=== PATIENT | male | born 1970 | race Caucasian/White ===

== ENCOUNTER 2016-06-09 16:03 | Inpatient (IN) | payer OTHER ==
--- NOTE | 2016-06-09 16:20 | ER Document Report ---
ED Medical Screen (RME) - General Stated Complaint: CALF PAIN Time seen by provider: 16:20 Mode of Arrival: Ambulatory Information source: Patient Notes: 45 yo male with hx right leg dvt post surgery 1, developed right calf pain on friday. No injury. Took xarelto until August 2015l TRAVEL OUTSIDE OF THE [place] IN LAST 30 DAYS: No - Related Data Allergies/Adverse Reactions: No Known Allergies Allergy (Verified 06/09/16 16:21) Past Medical History - Past Medical History Cardiac Medical History: Denies: Hx Coronary Artery Disease, Hx Heart Attack, Hx Hypertension Pulmonary Medical History: Reports: Hx Bronchitis - hx of, Hx Pneumonia - 2013 Denies: Hx Asthma, Hx COPD Neurological Medical History: Denies: Hx Seizures GI Medical History: Reports: Hx Gastroesophageal Reflux Disease, Hx Hiatal Hernia Musculoskeltal Medical History: Denies Hx Arthritis Past Surgical History: Reports: Hx Orthopedic Surgery - left shoulder rotator cuff, right elbow bone spur, bilateral knee scopes - Immunizations Hx Diphtheria, Pertussis, Tetanus Vaccination: Yes Physical Exam - Vital signs Vitals: Temp Pulse Resp BP Pulse Ox 97.6 F 76 22 H 136/75 H 99 06/09/16 16:22 06/09/16 16:22 06/09/16 16:22 06/09/16 16:22 06/09/16 16:22 Course - Vital Signs Vital signs: Temp Pulse Resp BP Pulse Ox 97.6 F 76 22 H 136/75 H 99 06/09/16 16:22 06/09/16 16:22 06/09/16 16:22 06/09/16 16:22 06/09/16 16:22
[2016-06-09 16:55] LABS: ABSOLUTE BASOPHILS # (AUTO) 0.1 10^3/uL (0.0-0.2); ABSOLUTE EOSINOPHILS # (AUTO) 0.1 10^3/uL (0.0-0.6); ABSOLUTE LYMPHOCYTES (AUTO) 1.8 10^3/uL (0.5-4.7); ABSOLUTE MONOCYTES (AUTO) 0.7 10^3/uL (0.1-1.4); ABSOLUTE NEUT (AUTO) 9.7 10^3/uL (1.7-8.2); BASOPHILS % (AUTO) 0.5 % (0-2); EOSINOPHILS % (AUTO) 0.8 % (0-6); HEMATOCRIT 44.7 % (37.9-51.0); HEMOGLOBIN 15.3 g/dL (13.5-17.0); HGB HCT DIFFERENCE 1.2; LYMPHOCYTES % (AUTO) 14.7 % (13-45); MEAN CORPUSCULAR HEMOGLOBIN 28.5 pg (27.0-33.4); MEAN CORPUSCULAR HGB CONC 34.2 g/dL (32.0-36.0); MEAN CORPUSCULAR VOLUME 83 fl (80-97); MONOCYTES % (AUTO) 5.9 % (3-13); RED BLOOD COUNT 5.38 10^6/uL (4.35-5.55); SEGMENTED NEUTROPHILS % (AUTO) 78.1 % (42-78); WHITE BLOOD COUNT 12.4 10^3/uL (4.0-10.5)
[2016-06-09 16:56] LABS: PROTHROMBIN TIME 13.2 SEC (11.4-15.4)
[2016-06-09 16:57] LABS: PARTIAL THROMBOPLASTIN TIME 26.4 SEC (23.5-35.8)
[2016-06-09 17:07] LABS: ALANINE AMINOTRANSFERASE 54 U/L (21-72); ALBUMIN 3.9 g/dL (3.5-5.0); ALKALINE PHOSPHATASE 75 U/L (38-126); ANION GAP 14 (5-19); ASPARTATE AMINO TRANSFERASE 29 U/L (17-59); BILIRUBIN,TOTAL 0.5 mg/dL (0.2-1.3); BLOOD UREA NITROGEN 10 mg/dL (7-20); CALCIUM 9.1 mg/dL (8.4-10.2); CARBON DIOXIDE 25 mmol/L (22-30); CHLORIDE 103 mmol/L (98-107); CREATININE RESULT 1.13 mg/dL (0.52-1.25); GLUCOSE 114 mg/dL (75-110); POTASSIUM 4.1 mmol/L (3.6-5.0); SODIUM 142.4 mmol/L (137-145)
[2016-06-09] MEDS ORDERED: RIVAROXABAN 15 MG TABLET PO ONE (18:38)
--- NOTE | 2016-06-09 18:41 | ER Document Report ---
ED Extremity Problem, Lower - General Chief Complaint: Leg Pain Stated Complaint: CALF PAIN Mode of Arrival: Ambulatory Information source: Patient Notes: 45-year-old male presents to the emergency department complaining of pain to his right lower leg. Patient reports progressive sharp pain to lateral aspect of right lower leg at calf area. Reports associated mild localized swelling. Patient states was diagnosed with DVT to same extremity approximately 12 months ago and treated for 90 days with course of Xarelto. Reports symptoms had resolved until recent episode. Pt also states is currently being treated for bronchitis per pcp with course of Prednisone, Albuterol INH, and Levaquin. Denies fever, chest pain, sob, hemoptysis, n/v, extremity weakness, numbness, tingling, or color changes. TRAVEL OUTSIDE OF THE [place] IN LAST 30 DAYS: No - HPI Patient complains to provider of: Pain, Swelling Location: Leg Occurred: Last week Onset/Duration: Gradual, Persistent Quality of pain: Achy, Sharp Severity: Moderate Pain Level: 2 Recent injury: No Exacerbated by: Movement, Walking - Related Data Allergies/Adverse Reactions: No Known Allergies Allergy (Verified 06/09/16 16:21) Past Medical History - General Information source: Patient - Social History Smoking Status: Never Smoker Chew tobacco use (# tins/day): No Frequency of alcohol use: None Drug Abuse: None Lives with: Family Family History: Reviewed & Not Pertinent, Other - mother had dvt Patient has suicidal ideation: No Patient has homicidal ideation: No - Past Medical History Cardiac Medical History: Denies: Hx Coronary Artery Disease, Hx Heart Attack, Hx Hypertension Pulmonary Medical History: Reports: Hx Bronchitis - hx of, Hx Pneumonia - 2013 Denies: Hx Asthma, Hx COPD Neurological Medical History: Denies: Hx Seizures GI Medical History: Reports: Hx Gastroesophageal Reflux Disease, Hx Hiatal Hernia Musculoskeltal Medical History: Denies Hx Arthritis Past Surgical History: Reports: Hx Orthopedic Surgery - left shoulder rotator cuff, right elbow bone spur, bilateral knee scopes - Immunizations Hx Diphtheria, Pertussis, Tetanus Vaccination: Yes Review of Systems - Review of Systems Constitutional: No symptoms reported EENT: No symptoms reported Cardiovascular: See HPI Respiratory: No symptoms reported Gastrointestinal: No symptoms reported Genitourinary: No symptoms reported Male Genitourinary: No symptoms reported Musculoskeletal: See HPI Skin: No symptoms reported Hematologic/Lymphatic: No symptoms reported Neurological/Psychological: No symptoms reported -: Yes All other systems reviewed and negative Physical Exam - Vital signs Vitals: Temp Pulse Resp BP Pulse Ox 97.6 F 76 22 H 136/75 H 99 06/09/16 16:22 06/09/16 16:22 06/09/16 16:22 06/09/16 16:22 06/09/16 16:22 Interpretation: Normal - General General appearance: Appears well, Alert In distress: None - HEENT Head: Normocephalic, Atraumatic Eyes: Normal Pupils: PERRL - Respiratory Respiratory status: No respiratory distress Chest status: Nontender Breath sounds: Normal Chest palpation: Normal - Cardiovascular Rhythm: Regular Heart sounds: Normal auscultation Murmur: No Pulses: Normal: Radial, Posterior tibial, Dorsalis pedis Normal capillary refill: Yes - Abdominal Inspection: Normal Distension: No distension Bowel sounds: Normal Tenderness: Nontender Organomegaly: No organomegaly - Back Back: Normal, Nontender - Extremities General upper extremity: Normal inspection, Nontender, Normal color, Normal ROM , Normal strength, Normal temperature. No: Tender, Edema General lower extremity: Normal inspection, Nontender, Normal color, Normal ROM , Normal strength, Normal temperature, Normal weight bearing. No: Tender, Edema Calf: Tender - Tenderness with palpation to posterior and lateral aspect of right lower leg at mid calf level. Mild localized swelling and slight warmth. No erythema or bruising. Distal neurovascular function intact. - Neurological Neuro grossly intact: Yes Cognition: Normal Orientation: AAOx4 [place] Coma Scale Eye Opening: Spontaneous [place] Coma Scale Verbal: Oriented [place] Coma Scale Motor: Obeys Commands [place] Coma Scale Total: 15 Speech: Normal Motor strength normal: LUE, RUE, LLE, RLE Sensory: Normal - Psychological Associated symptoms: Normal affect, Normal mood - Skin Skin Temperature: Warm Skin Moisture: Dry Skin Color: Normal Course - Re-evaluation Re-evalutation: 06/09/16 18:40 Patient hemodynamically stable, in no distress, afebrile. Venous ultrasound positive for femoral and popliteal DVT per Dr. Ronna Berg. Some presentation and findings discussed with Dr. Nguyễn who is on-call for patient's primary care provider Dr. Mcintosh and agrees to assume care and admit to telemetry unit. Recommends initiation of Xarelto 15 mg PO BID, first dose in the ED. Findings and plan discussed with patient who verbalized understanding and agrees with plan. - Vital Signs Vital signs: Temp Pulse Resp BP Pulse Ox 97.6 F 76 22 H 136/75 H 99 06/09/16 16:22 06/09/16 16:22 06/09/16 16:22 06/09/16 16:22 06/09/16 16:22 - Laboratory Result Diagrams: 06/09/16 16:35 06/09/16 16:35 Laboratory results interpreted by me: 06/09/16 06/09/16 16:35 16:35 WBC 12.4 H Seg Neutrophils % 78.1 H Absolute Neutrophils 9.7 H Glucose 114 H Discharge - Discharge Clinical Impression: DVT (deep venous thrombosis) Qualifiers: DVT location: lower extremity Affected thrombotic vein of extremity: femoral Laterality: right Chronicity: acute Qualified Code(s): I82.411 - Acute embolism and thrombosis of right femoral vein Condition: Stable Disposition: ADMITTED INPATIENT Admitting Provider: Javierist Kindrama Unit Admitted: Telemetry
--- NOTE | 2016-06-09 18:44 | VASCULAR PRELIM REPORT ---
Provider Note Provider Note: Positive for DVT in the right Femoral and Popliteal veins. Acute. Discussed with in the ER at 1840.
[2016-06-09] MEDS ORDERED: RIVAROXABAN 15 MG TABLET ONE (19:23)
[2016-06-09] MEDS ORDERED: METHYLPREDNISOLONE 4 MG TABLET PO PRN (22:56)
[2016-06-09] MEDS ORDERED: ACETAMINOPHEN 325 MG TABLET PO PRN (22:59)
[2016-06-10] MEDS ORDERED: BENZONATATE 100 MG CAPSULE PO ONE (02:15)
[2016-06-10 07:08] LABS: HEMATOCRIT 40.8 % (37.9-51.0); HGB HCT DIFFERENCE 1.2; MEAN CORPUSCULAR HEMOGLOBIN 28.6 pg (27.0-33.4); MEAN CORPUSCULAR HGB CONC 34.3 g/dL (32.0-36.0); MEAN CORPUSCULAR VOLUME 83 fl (80-97); RED CELL DISTRIBUTION WIDTH 13.2 % (11.5-14.0); WHITE BLOOD COUNT 11.4 10^3/uL (4.0-10.5)
[2016-06-10 07:28] LABS: ANION GAP 8 (5-19); BLOOD UREA NITROGEN 15 mg/dL (7-20); CALCIUM 8.6 mg/dL (8.4-10.2); CARBON DIOXIDE 30 mmol/L (22-30); CHLORIDE 103 mmol/L (98-107); CREATININE RESULT 1.33 mg/dL (0.52-1.25); GLUCOSE 91 mg/dL (75-110); SODIUM 141.1 mmol/L (137-145)
[2016-06-10 07:53] LABS: ANISOCYTOSIS SLIGHT; BASOPHILS % (MANUAL) 0 % (0-2); EOSINOPHILS % (MANUAL) 1 % (0-6); LYMPHOCYTES % (MANUAL) 34 % (13-45); TOTAL CELLS COUNTED 100
[2016-06-10 07:54] LABS: OVALOCYTES 1+; PLATELET CLUMPS PRESENT; POIKILOCYTOSIS 1+; POLYCHROMASIA SLIGHT; TOXIC GRANULATION SLIGHT
--- NOTE | 2016-06-10 08:18 | PDOC CONSULTATION ---
Consultation Consult Date: 06/10/16 Attending physician:: MELANIE MATTHEW Consult reason:: RLE DVT, pain, swelling History of Present Illness Admission Date/PCP: 06/09/16 23:09 MELANIE MATTHEW MD Patient complains of: RLE swelling and pain History of Present Illness: LILLIANA MURPHY is a 45 year old male with known history of right lower extremity DVT. He was originally diagnosed with this almost exactly one year ago. I saw him at that time, we placed him on a oral course of Xarelto. He was on that for 3 months. We then repeated a d-dimer as well as a ultrasound of the lower extremity, both were negative so we decided on removing anticoagulation. Recently, he experienced again right lower extremity swelling and pain. Ultrasound this time indicated DVT. He is currently having pain right now. He has had Tylenol but that's not really controlling the pain well. 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, Completed TB medication, 1991 Denies: Asthma Neurological Medical History: Denies: Seizures Renal/ Medical History: Denies: End Stage Renal Disease GI Medical History: Reports: Gastroesophageal Reflux Disease, Hiatal Hernia Denies: Cirrhosis Musculoskeltal Medical History: Denies: Arthritis Psychiatric Medical History: Denies: Bipolar Disorder, Depression Hematology: Denies: Anemia, Bleeding Tendencies Past Surgical History Past Surgical History: Reports: Orthopedic Surgery - left shoulder rotator cuff , right elbow bone spur, bilateral knee scopes Social History Lives with: Family Smoking Status: Never Smoker Drugs: None Family History Family History: Reviewed & Not Pertinent, Other - mother had dvt Parental Family History Reviewed: Yes Children Family History Reviewed: Yes Sibling(s) Family History Reviewed.: Yes Medication/Allergy Home Medications: Esomeprazole Magnesium [Nexium] 40 mg PO DAILY 05/12/15 Albuterol Sulfate [Proair HFA] 1 inh IH QID 06/09/16 Benzonatate [Benzonatate] 100 mg PO TID 06/09/16 Levofloxacin [Levofloxacin] 500 mg PO DAILY 06/09/16 Methylprednisolone [Medrol] 4 mg PO ASDIR PRN 06/09/16 Allergies/Adverse Reactions: No Known Allergies Allergy (Verified 06/09/16 16:21) Review of Systems Constitutional: ABSENT: chills, fever(s), headache(s), weight gain, weight loss Eyes: ABSENT: visual disturbances Ears: ABSENT: hearing changes Cardiovascular: ABSENT: chest pain, dyspnea on exertion, edema, orthropnea, palpitations Respiratory: PRESENT: cough, sputum. ABSENT: hemoptysis Gastrointestinal: ABSENT: abdominal pain, constipation, diarrhea, hematemesis, hematochezia, nausea, vomiting Genitourinary: ABSENT: dysuria, hematuria Musculoskeletal: PRESENT: other - Right lower extremity swelling Integumentary: ABSENT: rash, wounds Neurological: ABSENT: abnormal gait, abnormal speech, confusion, dizziness, focal weakness, syncope Psychiatric: ABSENT: anxiety, depression, homidical ideation, suicidal ideation Endocrine: ABSENT: cold intolerance, heat intolerance, polydipsia, polyuria Hematologic/Lymphatic: ABSENT: easy bleeding, easy bruising Physical Exam Vital Signs: Temp Pulse Resp BP Pulse Ox 98.1 F 64 18 120/54 L 98 06/10/16 00:00 06/10/16 00:00 06/10/16 00:00 06/10/16 00:00 06/10/16 00:00 Intake & Output 06/09/16 06/10/16 06/11/16 06:59 06:59 06:59 Intake Total 300 Balance 300 Weight 131 kg General appearance: PRESENT: no acute distress, well-developed, well-nourished Head exam: PRESENT: atraumatic, normocephalic Eye exam: PRESENT: conjunctiva pink, EOMI, PERRLA. ABSENT: scleral icterus Ear exam: PRESENT: normal external ear exam Mouth exam: PRESENT: moist, tongue midline Neck exam: ABSENT: carotid bruit, JVD, lymphadenopathy, thyromegaly Respiratory exam: PRESENT: clear to auscultation dee. ABSENT: rales, rhonchi, wheezes Cardiovascular exam: PRESENT: RRR. ABSENT: diastolic murmur, rubs, systolic murmur Pulses: PRESENT: normal dorsalis pedis pul Vascular exam: PRESENT: normal capillary refill GI/Abdominal exam: PRESENT: normal bowel sounds, soft. ABSENT: distended, guarding, mass, organolmegaly, rebound, tenderness Rectal exam: PRESENT: deferred Extremities exam: PRESENT: calf tenderness, pedal edema, other - Right lower extremity swelling Neurological exam: PRESENT: alert, awake, oriented to person, oriented to place , oriented to time, oriented to situation, CN II-XII grossly intact. ABSENT: motor sensory deficit Psychiatric exam: PRESENT: appropriate affect, normal mood. ABSENT: homicidal ideation, suicidal ideation Skin exam: PRESENT: dry, intact, warm. ABSENT: cyanosis, rash Results Laboratory Results: 06/10/16 06:50 06/10/16 06:50 06/10/16 06/10/16 06:50 06:50 WBC 11.4 H RBC 4.90 Hgb 14.0 Hct 40.8 MCV 83 MCH 28.6 MCHC 34.3 RDW 13.2 Plt Count 158 Seg Neutrophils % Not Reportable Lymphocytes % Not Reportable Monocytes % Not Reportable Eosinophils % Not Reportable Basophils % Not Reportable Absolute Neutrophils Not Reportable Absolute Lymphocytes Not Reportable Absolute Monocytes Not Reportable Absolute Eosinophils Not Reportable Absolute Basophils Not Reportable Sodium 141.1 Potassium 4.0 Chloride 103 Carbon Dioxide 30 Anion Gap 8 BUN 15 Creatinine 1.33 H Est GFR ( Amer) > 60 Est GFR (Non-Af Amer) 58 L Glucose 91 Calcium 8.6 Assessment & Plan - Diagnosis (1) Acute deep vein thrombosis (DVT) of right popliteal vein Is this a current diagnosis for this admission?: YesPlan: Right lower extremity DVT, this would be DVT #2, he will need to be now on lifelong anticoagulation with Xarelto, he will initially be on 15 mg twice a day for 21 days then transitioned to 20 mg daily. No further lab work needed. For his pain I will give him [place] while inpatient and I've given him a prescription for [place] as an outpatient. He will have follow-up in our office in 3 weeks. - Time Time Spent: 50 to 70 Minutes Critical Time spent with patient: 25-34 minutes Anticipated discharge: Home Within: within 24 hours - Inpatient Certification Based on my medical assessment, after consideration of the patient's comorbidities, presenting symptoms, or acuity I expect that the services needed warrant INPATIENT care.: Yes I certify that my determination is in accordance with my understanding of Medicare's requirements for reasonable and necessary INPATIENT services [42 CFR 412.3e].: Yes Medical Necessity: Failure to Improve With Outpatient Therapy, Risk of Complication if Not Cared For in Hospital
[2016-06-10] MEDS ORDERED: HYDROCODONE/ACETAMINOPHEN 5-325 MG TABLET PO PRN (08:34)
[2016-06-10] MEDS ORDERED: ALBUTEROL SULFATE HFA (90 MCG/PUFF) 200 PUFF/8.5 GM MDI IH SCH (10:00)
[2016-06-10] MEDS ORDERED: ALBUTEROL SULFATE HFA (90 MCG/PUFF) 8 GM MDI (1 MDI/ER DISP) IH SCH (10:00)
[2016-06-10] MEDS ORDERED: BENZONATATE 100 MG CAPSULE PO SCH (10:00)
[2016-06-10] MEDS: LANSOPRAZOLE 30 MG TAB.RAP.DR PO SCH (10:17)
[2016-06-10] MEDS: RIVAROXABAN 15 MG TABLET PO SCH ×2 (10:17→17:40)
[2016-06-10] MEDS: LEVOFLOXACIN 500 MG TABLET PO SCH (10:17)
[2016-06-10] MEDS: METHYLPREDNISOLONE INJ 40 MG/1 ML SDV IV SCH ×2 (10:18→21:22)
[2016-06-10] MEDS: BENZONATATE 100 MG CAPSULE PO SCH ×3 (10:18→17:40)
--- NOTE | 2016-06-10 10:59 | XCELERA REPORT ---
[address] [address] Lower Extremity Venous Evaluation Name: LILLIANA MURPHY Age: 45 yrs Gender: Male : 1970 Patient Status: Preadmit Patient Location: ER Study Date: 06/09/2016 05:51 PM Procedure: Color flow and duplex imaging of the veins of the right lower extremity as well as the left Common Femoral vein. Reason For Study: rt calf, hx dvt right leg Ordering Physician: JERAD HORN Performed By: Bella Thayer Right Sided Venous Evaluation Abnormal vessel filling , echogenic content, no compression or Colour flow in the distal Femora to Popliteal vein. Left Sided Venous Evaluation The left common femoral vein is fully compressible. Spontaneous and phasic flow is present in the left common femoral vein. Critical Findings Per Preliminary report. Interpretation Summary Acute DVT in the right Femoral and Popliteal veins. : JERAD HORN > Shaq Berg
[2016-06-10] MEDS: IPRATROPIUM/ALBUTEROL 0.5-2.5 MG/3 ML AMPUL NEB SCH ×2 (13:41→19:44)
[2016-06-10] MEDS ORDERED: HYDROCODONE BIT/HOMATROPINE SYRUP 5 ML UDCUP PO PRN (13:46)
--- NOTE | 2016-06-10 13:53 | PDOC H&P ---
History of Present Illness Admission Date/PCP: 06/09/16 23:09 MELANIE MATTHEW MD Patient complains of: rt leg pain History of Present Illness: LILLIANA MURPHY is a 45 year old male with known history of right lower extremity DVT. He was originally diagnosed with this almost exactly one year ago. I saw him at that time, we placed him on a oral course of Xarelto. He was on that for 3 months. We then repeated a d-dimer as well as a ultrasound of the lower extremity, both were negative so we decided on removing anticoagulation. Recently, he experienced again right lower extremity swelling and pain. Ultrasound this time indicated DVT. He is currently having pain right now. He has had Tylenol but that's not really controlling the pain well.pt is also c/o cough and rx out pt levaquin and medrol dose pack and still not improving 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, Completed TB medication, 1991 Denies: Asthma Neurological Medical History: Denies: Seizures Renal/ Medical History: Denies: End Stage Renal Disease GI Medical History: Reports: Gastroesophageal Reflux Disease, Hiatal Hernia Denies: Cirrhosis Musculoskeltal Medical History: Denies: Arthritis Psychiatric Medical History: Denies: Bipolar Disorder, Depression Hematology: Denies: Anemia, Bleeding Tendencies Past Surgical History Past Surgical History: Reports: Orthopedic Surgery - left shoulder rotator cuff , right elbow bone spur, bilateral knee scopes Social History Lives with: Family Smoking Status: Never Smoker Drugs: None Family History Family History: Reviewed & Not Pertinent, Other - mother had dvt Parental Family History Reviewed: Yes Children Family History Reviewed: Yes Sibling(s) Family History Reviewed.: Yes Medication/Allergy Home Medications: Esomeprazole Magnesium [Nexium] 40 mg PO DAILY 05/12/15 Benzonatate [Benzonatate] 100 mg PO TID PRN 06/09/16 Albuterol Sulfate [Proair HFA] 2 puff IH Q4 06/10/16 Allergies/Adverse Reactions: No Known Allergies Allergy (Verified 06/09/16 16:21) Review of Systems Constitutional: PRESENT: fatigue Eyes: ABSENT: as per HPI, visual disturbances, other Ears: ABSENT: as per HPI, hearing changes, other Nose, Mouth, and Throat: ABSENT: as per HPI, headache(s), mouth pain, sore throat, vertigo, other Cardiovascular: ABSENT: as per HPI, chest pain, dyspnea on exertion, edema, orthropnea, palpitations, other Respiratory: PRESENT: cough, sputum Gastrointestinal: ABSENT: as per HPI, abdominal pain, bloating, coffee ground emesis, constipation, diarrhea, dysphagia, heartburn, hematemesis, hematochezia , melena, nausea, vomiting, other Genitourinary: ABSENT: as per HPI, difficulty urinating, dysuria, hematuria, nocturia, other Musculoskeletal: ABSENT: as per HPI, back pain, deformity, joint swelling, muscle weakness, other Integumentary: ABSENT: as per HPI, diaphoresis, erythema, lesions, pruritus, rash, wounds, other Neurological: ABSENT: as per HPI, abnormal gait, abnormal movements, abnormal speech, confusion, convulsions, dizziness, focal weakness, frequent falls, lack of coordination, memory loss, numbness, paresthesias, restless legs, syncope, tingling, tremor(s), vertigo, weakness, other Psychiatric: ABSENT: as per HPI, anxiety, depression, hallucinations, homidical ideation, suicidal ideation, other Endocrine: ABSENT: as per HPI, cold intolerance, flushing, heat intolerance, menstrual abnormalities, polydipsia, polyphagia, polyuria, other Hematologic/Lymphatic: ABSENT: as per HPI, easy bleeding, easy bruising, lymphadenopathy, other Physical Exam Vital Signs: Temp Pulse Resp BP Pulse Ox 98.6 F 72 20 133/66 H 97 06/10/16 12:06 06/10/16 12:06 06/10/16 12:06 06/10/16 12:06 06/10/16 12:06 Intake & Output 06/09/16 06/10/16 06/11/16 06:59 06:59 06:59 Intake Total 300 Balance 300 Weight 131 kg General appearance: PRESENT: no acute distress Head exam: PRESENT: normocephalic Eye exam: PRESENT: PERRLA Mouth exam: PRESENT: neck supple Respiratory exam: PRESENT: clear to auscultation dee Cardiovascular exam: PRESENT: +S1, +S2 GI/Abdominal exam: PRESENT: normal bowel sounds, soft. ABSENT: tenderness Extremities exam: PRESENT: calf tenderness. ABSENT: pedal edema Additional comments: rt leg Musculoskeletal exam: PRESENT: ambulatory Neurological exam: PRESENT: alert, awake, oriented to person, oriented to place , oriented to time, oriented to situation Psychiatric exam: PRESENT: normal mood Skin exam: PRESENT: normal color Results Laboratory Results: 06/10/16 06:50 06/10/16 06:50 06/10/16 06/10/16 06:50 06:50 WBC 11.4 H RBC 4.90 Hgb 14.0 Hct 40.8 MCV 83 MCH 28.6 MCHC 34.3 RDW 13.2 Plt Count 158 Seg Neutrophils % Not Reportable Lymphocytes % Not Reportable Monocytes % Not Reportable Eosinophils % Not Reportable Basophils % Not Reportable Absolute Neutrophils Not Reportable Absolute Lymphocytes Not Reportable Absolute Monocytes Not Reportable Absolute Eosinophils Not Reportable Absolute Basophils Not Reportable Sodium 141.1 Potassium 4.0 Chloride 103 Carbon Dioxide 30 Anion Gap 8 BUN 15 Creatinine 1.33 H Est GFR ( Amer) > 60 Est GFR (Non-Af Amer) 58 L Glucose 91 Calcium 8.6 Impressions: Chest X-Ray 06/10/16 00:00 IMPRESSION: NO SIGNIFICANT RADIOGRAPHIC FINDING IN THE CHEST. Assessment & Plan - Diagnosis (1) Acute deep vein thrombosis (DVT) of right popliteal vein Is this a current diagnosis for this admission?: YesPlan: start xeralto consult dr coats for recuurent episode (2) Cough Is this a current diagnosis for this admission?: YesPlan: start cough med (3) Bronchitis Is this a current diagnosis for this admission?: YesPlan: order ct chest start iv med duoneb rx - Time Time Spent: 30 to 50 Minutes Medications reviewed and adjusted accordingly: Yes Anticipated discharge: Home - Inpatient Certification Medical Necessity: Failure to Improve With Outpatient Therapy, Need Close Monitoring Due to Risk of Patient Decompensation - Plan Summary Plan Summary: start xerlato/start levaquin start duoneb ct chest
[2016-06-10] MEDS: HYDROCODONE BIT/HOMATROPINE 5-1.5 MG TABLET PO PRN ×2 (14:07→22:14)
[2016-06-11] MEDS: IPRATROPIUM/ALBUTEROL 0.5-2.5 MG/3 ML AMPUL NEB SCH ×3 (07:56→20:07)
--- NOTE | 2016-06-11 08:12 | PDOC PROGRESS REPORT ---
Subjective Progress Note for:: 06/11/16 Subjective:: Patient with a lot of cough still, productive, shortness of breath. He had CT of the chest and we discussed this findings today. His leg is a little bit better. Pain is controlled on [place]. Physical Exam Vital Signs: Temp Pulse Resp BP Pulse Ox 98.6 F 99 18 126/55 H 95 06/10/16 23:22 06/10/16 23:22 06/10/16 23:22 06/10/16 23:22 06/10/16 23:22 Intake & Output 06/10/16 06/11/16 06/12/16 06:59 06:59 06:59 Intake Total 300 2220 Balance 300 2220 Weight 131 kg General appearance: PRESENT: no acute distress, well-developed, well-nourished Head exam: PRESENT: atraumatic, normocephalic Eye exam: PRESENT: conjunctiva pink, EOMI, PERRLA. ABSENT: scleral icterus Ear exam: PRESENT: normal external ear exam Mouth exam: PRESENT: moist, tongue midline Neck exam: ABSENT: carotid bruit, JVD, lymphadenopathy, thyromegaly Respiratory exam: PRESENT: clear to auscultation dee. ABSENT: rales, rhonchi, wheezes Cardiovascular exam: PRESENT: RRR. ABSENT: diastolic murmur, rubs, systolic murmur Pulses: PRESENT: normal dorsalis pedis pul Vascular exam: PRESENT: normal capillary refill GI/Abdominal exam: PRESENT: normal bowel sounds, soft. ABSENT: distended, guarding, mass, organolmegaly, rebound, tenderness Rectal exam: PRESENT: deferred Extremities exam: PRESENT: full ROM. ABSENT: calf tenderness, clubbing, pedal edema Neurological exam: PRESENT: alert, awake, oriented to person, oriented to place , oriented to time, oriented to situation, CN II-XII grossly intact. ABSENT: motor sensory deficit Psychiatric exam: PRESENT: appropriate affect, normal mood. ABSENT: homicidal ideation, suicidal ideation Skin exam: PRESENT: dry, intact, warm. ABSENT: cyanosis, rash Results Laboratory Results: 06/10/16 06:50 06/10/16 06:50 Impressions: Chest CT 06/10/16 00:00 IMPRESSION: Evidence of old granulomatous disease with multiple small less than 5 mm calcified and noncalcified granulomas bilaterally, and a right lower hilar/ subcarinal calcified lymph node. Indeterminate nodule right lower lobe along a bandlike scar. Nodule measures 1.4 x 0.9 cm in size. This is likely benign postinflammatory change. Consider serial follow-up noncontrast CT to document stability, or PET-CT for further evaluation Chest X-Ray 06/10/16 00:00 IMPRESSION: NO SIGNIFICANT RADIOGRAPHIC FINDING IN THE CHEST. Assessment & Plan - Diagnosis (1) Acute deep vein thrombosis (DVT) of right popliteal vein Is this a current diagnosis for this admission?: YesPlan: Improved, con't w/ xarelto continue with pain medication, ultimately he'll need Rx for Xarelto (2) Solitary pulmonary nodule on lung CT Is this a current diagnosis for this admission?: YesPlan: He received CT of the chest for evaluation for pneumonia, this indicated a right lung 1.4 cm nodule. Although this may be secondary to granulomatous disease, it would be reasonable to do PET CT as an outpatient, alternatively serial CTs could be done every 4 months for the first year and every 6 months in the second year. Regardless we'll make that decision as an outpatient. Today spent about 45 minutes in discussion, patient voiced understanding. - Time Time Spent with patient: 35 or more minutes Critical Time spent with patient: 35 or more minutes - Inpatient Certification Based on my medical assessment, after consideration of the patient's comorbidities, presenting symptoms, or acuity I expect that the services needed warrant INPATIENT care.: Yes I certify that my determination is in accordance with my understanding of Medicare's requirements for reasonable and necessary INPATIENT services [42 CFR 412.3e].: Yes Medical Necessity: Failure to Improve With Outpatient Therapy, Need for IV Antibiotics
--- NOTE | 2016-06-11 10:25 | PDOC PROGRESS REPORT ---
Subjective Progress Note for:: 06/11/16 Subjective:: pt is still coughing pt ct chest shows old granlumatous disese and nodule pt exposue to tb in [place] was rx for 6 month many yr back pt denied any chest pain leg pain is also better Physical Exam Vital Signs: Temp Pulse Resp BP Pulse Ox 98.0 F 84 10 L 128/73 H 97 06/11/16 07:54 06/11/16 07:57 06/11/16 07:57 06/11/16 07:54 06/11/16 07:57 Intake & Output 06/10/16 06/11/16 06/12/16 06:59 06:59 06:59 Intake Total 300 2220 Balance 300 2220 Weight 131 kg General appearance: PRESENT: no acute distress Head exam: PRESENT: normocephalic Eye exam: PRESENT: PERRLA Mouth exam: PRESENT: neck supple Neck exam: PRESENT: full ROM Respiratory exam: PRESENT: clear to auscultation dee Cardiovascular exam: PRESENT: +S1 GI/Abdominal exam: PRESENT: normal bowel sounds, soft. ABSENT: tenderness Extremities exam: ABSENT: pedal edema Neurological exam: PRESENT: alert, awake, oriented to person, oriented to place , oriented to time, oriented to situation Psychiatric exam: PRESENT: normal mood Skin exam: PRESENT: normal color Results Laboratory Results: 06/10/16 06:50 06/10/16 06:50 Impressions: Chest CT 06/10/16 00:00 IMPRESSION: Evidence of old granulomatous disease with multiple small less than 5 mm calcified and noncalcified granulomas bilaterally, and a right lower hilar/ subcarinal calcified lymph node. Indeterminate nodule right lower lobe along a bandlike scar. Nodule measures 1.4 x 0.9 cm in size. This is likely benign postinflammatory change. Consider serial follow-up noncontrast CT to document stability, or PET-CT for further evaluation Chest X-Ray 06/10/16 00:00 IMPRESSION: NO SIGNIFICANT RADIOGRAPHIC FINDING IN THE CHEST. Assessment & Plan - Diagnosis (1) Acute deep vein thrombosis (DVT) of right popliteal vein Is this a current diagnosis for this admission?: YesPlan: start xeralto consult dr coats for recuurent episode (2) Cough Is this a current diagnosis for this admission?: YesPlan: will get tb test order afb culture (3) Bronchitis Is this a current diagnosis for this admission?: YesPlan: cont curr med (4) Solitary pulmonary nodule on lung CT Is this a current diagnosis for this admission?: YesPlan: f/u with dr coats - Time Time Spent with patient: 15-24 minutes Medications reviewed and adjusted accordingly: Yes Anticipated discharge: Home - Inpatient Certification Medical Necessity: Need Close Monitoring Due to Risk of Patient Decompensation, Need for Nebulizer Therapy and Monitoring of Response - Plan Summary Plan Summary: consult pulmonary cont curr med tb test
[2016-06-11] MEDS: RIVAROXABAN 15 MG TABLET PO SCH ×2 (10:39→17:10)
[2016-06-11] MEDS: LEVOFLOXACIN 500 MG TABLET PO SCH (10:39)
[2016-06-11] MEDS: HYDROCODONE BIT/HOMATROPINE 5-1.5 MG TABLET PO PRN ×3 (10:39→23:27)
[2016-06-11] MEDS: METHYLPREDNISOLONE INJ 40 MG/1 ML SDV IV SCH ×2 (10:39→21:31)
[2016-06-11] MEDS: LANSOPRAZOLE 30 MG TAB.RAP.DR PO SCH (10:40)
[2016-06-11] MEDS: BENZONATATE 100 MG CAPSULE PO SCH ×3 (10:40→17:10)
--- NOTE | 2016-06-11 12:18 | PDOC CONSULTATION ---
Consultation Consult Date: 06/11/16 Attending physician:: MELANIE MATTHEW Consult reason:: cough/lung nodule History of Present Illness Admission Date/PCP: 06/09/16 23:09 MELANIE MATTHEW MD History of Present Illness: LILLIANA MURPHY is a 45 year old male with known history of right lower extremity DVT. He was originally diagnosed one year ago diagnosis of DVT he was on Xarelto for 3 months and then this was discontinued. Within the last week he began to experience right lower extremity swelling and pain. Ultrasound this time indicated DVT. At this time he is being treated for DVT. He also complains of cough with clear phlegm and denies any hemoptysis although his PPD was positive in the past and he remains 6 months of INH treatment. He states that his bronchitis usually occurs once a year every year around this time of year. In his normal state of health he denies shortness of breath or dyspnea on exertion or wheezing. He admits to being exposed to passive smoke as a child as well as an adolescent. He denies that he is ever smoked except occasional cigar. 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 He has dogs and cats but denies any recent travel except to [place]. Denies angina-like chest pain sleeps on 2 pillows no PND occasional nocturnal cough and no edema. He has a history of obstructive sleep apnea and has a CPAP machine at home that is set to +8 cm of humidified H20. 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, Completed TB medication, 1991 Denies: Asthma Neurological Medical History: Denies: Seizures Renal/ Medical History: Denies: End Stage Renal Disease GI Medical History: Reports: Gastroesophageal Reflux Disease, Hiatal Hernia Denies: Cirrhosis Musculoskeltal Medical History: Denies: Arthritis Psychiatric Medical History: Denies: Bipolar Disorder, Depression Hematology: Denies: Anemia, Bleeding Tendencies Past Surgical History Past Surgical History: Reports: Orthopedic Surgery - left shoulder rotator cuff , right elbow bone spur, bilateral knee scopes Social History Lives with: Family Smoking Status: Never Smoker Passive smoke exposure as: Both Frequency of Alcohol Use: Rare Drugs: None Do you have pets?: Yes Have you had any respiratory illnesses as a child?: No Have you travelled outside of [place] in the past 12 months?: No Family History Family History: Reviewed & Not Pertinent, Other - mother had dvt Parental Family History Reviewed: Yes Children Family History Reviewed: Yes Sibling(s) Family History Reviewed.: Yes Medication/Allergy Home Medications: Esomeprazole Magnesium [Nexium] 40 mg PO DAILY 05/12/15 Benzonatate [Benzonatate] 100 mg PO TID PRN 06/09/16 Albuterol Sulfate [Proair HFA] 2 puff IH Q4 06/10/16 Allergies/Adverse Reactions: No Known Allergies Allergy (Verified 06/09/16 16:21) Physical Exam Vital Signs: Temp Pulse Resp BP Pulse Ox 98.0 F 84 10 L 128/73 H 97 06/11/16 07:54 06/11/16 07:57 06/11/16 07:57 06/11/16 07:54 06/11/16 07:57 Intake & Output 06/10/16 06/11/16 06/12/16 06:59 06:59 06:59 Intake Total 300 2220 Balance 300 2220 Weight 131 kg General appearance: PRESENT: no acute distress, disheveled, well-developed, well -nourished Head exam: PRESENT: atraumatic, normocephalic Eye exam: PRESENT: conjunctiva pale, EOMI, PERRLA Neck exam: ABSENT: carotid bruit, JVD, lymphadenopathy, thyromegaly Respiratory exam: PRESENT: decreased breath sounds, prolonged expiratory phas, rhonchi, symmetrical, unlabored Cardiovascular exam: PRESENT: RRR, +S1, +S2 Pulses: PRESENT: normal radial pulses GI/Abdominal exam: PRESENT: normal bowel sounds, soft. ABSENT: distended, guarding, mass, organolmegaly, rebound, tenderness Rectal exam: PRESENT: deferred Musculoskeletal exam: PRESENT: normal inspection Neurological exam: PRESENT: alert, altered, awake, oriented to person, oriented to place, oriented to time, oriented to situation, reflexes normal, CN II-XII grossly intact Psychiatric exam: PRESENT: normal mood Skin exam: PRESENT: dry, warm Results Laboratory Results: 06/10/16 06:50 06/10/16 06:50 Impressions: Chest CT 06/10/16 00:00 IMPRESSION: Evidence of old granulomatous disease with multiple small less than 5 mm calcified and noncalcified granulomas bilaterally, and a right lower hilar/ subcarinal calcified lymph node. Indeterminate nodule right lower lobe along a bandlike scar. Nodule measures 1.4 x 0.9 cm in size. This is likely benign postinflammatory change. Consider serial follow-up noncontrast CT to document stability, or PET-CT for further evaluation Chest X-Ray 06/10/16 00:00 IMPRESSION: NO SIGNIFICANT RADIOGRAPHIC FINDING IN THE CHEST. Assessment & Plan - Diagnosis (1) Acute deep vein thrombosis (DVT) of right popliteal vein Is this a current diagnosis for this admission?: YesPlan: Anticoagulation as you have initiated (2) Bronchitis Is this a current diagnosis for this admission?: YesPlan: Patient has had difficulty in the past with vocal cords and has had vocal cord surgery frequently has postprandial coughing spasms. He has had a negative modified barium swallow nonetheless strongly feel that his coughing and recurrent bronchitis is directly related to his vocal cord issues. Would like to see patient is outside and get a set of pulmonary function test when he is at or near baseline his hemidiaphragms appear to be somewhat flattened and there may be some degree of obstructive defect he also may benefit from bronchodilator therapy. (3) Cough Is this a current diagnosis for this admission?: YesPlan: Tessalon Perles 200 mg p.o. 3 times daily (4) Solitary pulmonary nodule on lung CT Is this a current diagnosis for this admission?: YesPlan: LOW RISK PATIENTS: >8 mm: 3, 9, 24 mo. follow-up. Consider PET/biopsy certainly this patient is a low risk without a history of smoking cigarettes and that to the character of the actual lesion (area in question has a tail) would lead one to think that this is not malignant nonetheless follow-up CT scan in 9 months could be considered reasonable.
[2016-06-12 07:45] LABS: HEMATOCRIT 42.5 % (37.9-51.0); HEMOGLOBIN 14.2 g/dL (13.5-17.0); HGB HCT DIFFERENCE 0.1; MEAN CORPUSCULAR HEMOGLOBIN 28.4 pg (27.0-33.4); MEAN CORPUSCULAR HGB CONC 33.5 g/dL (32.0-36.0); MEAN CORPUSCULAR VOLUME 85 fl (80-97); RED BLOOD COUNT 5.02 10^6/uL (4.35-5.55); RED CELL DISTRIBUTION WIDTH 13.1 % (11.5-14.0); WHITE BLOOD COUNT 14.4 10^3/uL (4.0-10.5)
[2016-06-12 07:46] LABS: ANION GAP 13 (5-19); BLOOD UREA NITROGEN 22 mg/dL (7-20); CALCIUM 9.6 mg/dL (8.4-10.2); CARBON DIOXIDE 24 mmol/L (22-30); CHLORIDE 102 mmol/L (98-107); CREATININE RESULT 1.07 mg/dL (0.52-1.25); GLUCOSE 108 mg/dL (75-110); POTASSIUM 4.6 mmol/L (3.6-5.0); SODIUM 139.1 mmol/L (137-145)
--- NOTE | 2016-06-12 08:10 | PDOC PROGRESS REPORT ---
Subjective Progress Note for:: 06/12/16 Subjective:: No acute events overnight, pt feels breathing and cough better, leg feeling better Physical Exam Vital Signs: Temp Pulse Resp BP Pulse Ox 97.8 F 65 18 141/81 H 100 06/12/16 03:51 06/12/16 03:51 06/12/16 03:51 06/12/16 03:51 06/12/16 03:51 Intake & Output 06/11/16 06/12/16 06/13/16 06:59 06:59 06:59 Intake Total 2220 1690 Balance 2220 1690 General appearance: PRESENT: no acute distress, well-developed, well-nourished Head exam: PRESENT: atraumatic, normocephalic Eye exam: PRESENT: conjunctiva pink, EOMI, PERRLA. ABSENT: scleral icterus Ear exam: PRESENT: normal external ear exam Mouth exam: PRESENT: moist, tongue midline Neck exam: ABSENT: carotid bruit, JVD, lymphadenopathy, thyromegaly Respiratory exam: PRESENT: clear to auscultation dee. ABSENT: rales, rhonchi, wheezes Cardiovascular exam: PRESENT: RRR. ABSENT: diastolic murmur, rubs, systolic murmur Pulses: PRESENT: normal dorsalis pedis pul Vascular exam: PRESENT: normal capillary refill GI/Abdominal exam: PRESENT: normal bowel sounds, soft. ABSENT: distended, guarding, mass, organolmegaly, rebound, tenderness Rectal exam: PRESENT: deferred Extremities exam: PRESENT: full ROM. ABSENT: calf tenderness, clubbing, pedal edema Neurological exam: PRESENT: alert, awake, oriented to person, oriented to place , oriented to time, oriented to situation, CN II-XII grossly intact. ABSENT: motor sensory deficit Psychiatric exam: PRESENT: appropriate affect, normal mood. ABSENT: homicidal ideation, suicidal ideation Skin exam: PRESENT: dry, intact, warm. ABSENT: cyanosis, rash Results Laboratory Results: 06/11/16 10:30 Sputum Gram Stain - Final 06/11/16 10:30 Sputum Sputum Culture - Final Impressions: Chest CT 06/10/16 00:00 IMPRESSION: Evidence of old granulomatous disease with multiple small less than 5 mm calcified and noncalcified granulomas bilaterally, and a right lower hilar/ subcarinal calcified lymph node. Indeterminate nodule right lower lobe along a bandlike scar. Nodule measures 1.4 x 0.9 cm in size. This is likely benign postinflammatory change. Consider serial follow-up noncontrast CT to document stability, or PET-CT for further evaluation Chest X-Ray 06/10/16 00:00 IMPRESSION: NO SIGNIFICANT RADIOGRAPHIC FINDING IN THE CHEST. Assessment & Plan - Diagnosis (1) Acute deep vein thrombosis (DVT) of right popliteal vein Is this a current diagnosis for this admission?: YesPlan: Con't w/ xarelto 15mg BID, con't x 21 days total then 20mg daily, will con't lifelong now. (2) Solitary pulmonary nodule on lung CT Is this a current diagnosis for this admission?: YesPlan: Plan for either PET/CT as outpt or serial CT chest imaging but I can help the pt make that decision as outpt, would not plan any imaging for atleast 8 weeks post infection. Today had long discussion w/ pt and at bedside, spent 40min in discussion. - Time Time Spent with patient: 35 or more minutes Critical Time spent with patient: 35 or more minutes - Inpatient Certification Based on my medical assessment, after consideration of the patient's comorbidities, presenting symptoms, or acuity I expect that the services needed warrant INPATIENT care.: Yes I certify that my determination is in accordance with my understanding of Medicare's requirements for reasonable and necessary INPATIENT services [42 CFR 412.3e].: Yes Medical Necessity: Failure to Improve With Outpatient Therapy, Need for IV Antibiotics, Risk of Complication if Not Cared For in Hospital
[2016-06-12 08:30] LABS: BASOPHILS % (MANUAL) 0 % (0-2); EOSINOPHILS % (MANUAL) 0 % (0-6); LYMPHOCYTES % (MANUAL) 11 % (13-45); OVALOCYTES SLIGHT; POIKILOCYTOSIS SLIGHT; TOTAL CELLS COUNTED 100; TOXIC GRANULATION SLIGHT
--- NOTE | 2016-06-12 08:34 | PDOC PROGRESS REPORT ---
Subjective Progress Note for:: 06/12/16 Subjective:: pt is doing fair still coughing on and off seen by dr maldonado nochest pain no sob Physical Exam Vital Signs: Temp Pulse Resp BP Pulse Ox 97.8 F 54 L 17 140/77 H 98 06/12/16 07:27 06/12/16 07:27 06/12/16 07:27 06/12/16 07:27 06/12/16 07:27 Intake & Output 06/11/16 06/12/16 06/13/16 06:59 06:59 06:59 Intake Total 2220 1690 Balance 2220 1690 General appearance: PRESENT: no acute distress Head exam: PRESENT: normocephalic Eye exam: PRESENT: PERRLA Mouth exam: PRESENT: neck supple Neck exam: PRESENT: full ROM Respiratory exam: PRESENT: clear to auscultation dee Cardiovascular exam: PRESENT: +S1, +S2 GI/Abdominal exam: PRESENT: normal bowel sounds, soft. ABSENT: tenderness Extremities exam: ABSENT: pedal edema Neurological exam: PRESENT: alert, awake, oriented to person, oriented to place , oriented to time, oriented to situation Psychiatric exam: PRESENT: normal mood Skin exam: PRESENT: normal color Results Laboratory Results: 06/12/16 05:40 06/12/16 05:40 06/12/16 06/12/16 05:40 05:40 WBC 14.4 H RBC 5.02 Hgb 14.2 Hct 42.5 MCV 85 MCH 28.4 MCHC 33.5 RDW 13.1 Plt Count 224 Seg Neutrophils % Not Reportable Lymphocytes % Not Reportable Monocytes % Not Reportable Eosinophils % Not Reportable Basophils % Not Reportable Absolute Neutrophils Not Reportable Absolute Lymphocytes Not Reportable Absolute Monocytes Not Reportable Absolute Eosinophils Not Reportable Absolute Basophils Not Reportable Sodium 139.1 Potassium 4.6 Chloride 102 Carbon Dioxide 24 Anion Gap 13 BUN 22 H Creatinine 1.07 Est GFR ( Amer) > 60 Est GFR (Non-Af Amer) > 60 Glucose 108 Calcium 9.6 06/11/16 10:30 Sputum Gram Stain - Final 06/11/16 10:30 Sputum Sputum Culture - Final Impressions: Chest CT 06/10/16 00:00 IMPRESSION: Evidence of old granulomatous disease with multiple small less than 5 mm calcified and noncalcified granulomas bilaterally, and a right lower hilar/ subcarinal calcified lymph node. Indeterminate nodule right lower lobe along a bandlike scar. Nodule measures 1.4 x 0.9 cm in size. This is likely benign postinflammatory change. Consider serial follow-up noncontrast CT to document stability, or PET-CT for further evaluation Chest X-Ray 06/10/16 00:00 IMPRESSION: NO SIGNIFICANT RADIOGRAPHIC FINDING IN THE CHEST. Assessment & Plan - Diagnosis (1) Acute deep vein thrombosis (DVT) of right popliteal vein Is this a current diagnosis for this admission?: YesPlan: start xeralto consult dr coats for recuurent episode (2) Cough Is this a current diagnosis for this admission?: YesPlan: stable (3) Bronchitis Is this a current diagnosis for this admission?: YesPlan: cont curr med (4) Solitary pulmonary nodule on lung CT Is this a current diagnosis for this admission?: YesPlan: f/u with dr coats - Time Time Spent with patient: 15-24 minutes Medications reviewed and adjusted accordingly: Yes Anticipated discharge: Home - Plan Summary Plan Summary: d/w pt and about all test result and plan
[2016-06-12] MEDS: IPRATROPIUM/ALBUTEROL 0.5-2.5 MG/3 ML AMPUL NEB SCH ×3 (09:01→19:06)
[2016-06-12] MEDS: BENZONATATE 100 MG CAPSULE PO SCH ×3 (10:19→18:07)
[2016-06-12] MEDS: LEVOFLOXACIN 500 MG TABLET PO SCH (10:19)
[2016-06-12] MEDS: PREDNISONE 20 MG TABLET PO SCH ×2 (10:19→18:08)
[2016-06-12] MEDS: RIVAROXABAN 15 MG TABLET PO SCH ×2 (10:19→18:07)
[2016-06-12] MEDS: LANSOPRAZOLE 30 MG TAB.RAP.DR PO SCH (10:19)
[2016-06-12] MEDS ORDERED: CEFEPIME 1 GM/D5W RTU 1 GM/50 ML RTUPB IV ONE (11:00)
[2016-06-12] MEDS: CEFEPIME 1 GM/D5W RTU 1 GM/50 ML RTUPB IV SCH (21:34)
[2016-06-13 07:08] LABS: ABSOLUTE BASOPHILS # (AUTO) 0.1 10^3/uL (0.0-0.2); ABSOLUTE EOSINOPHILS # (AUTO) 0.1 10^3/uL (0.0-0.6); ABSOLUTE LYMPHOCYTES (AUTO) 1.8 10^3/uL (0.5-4.7); ABSOLUTE MONOCYTES (AUTO) 0.9 10^3/uL (0.1-1.4); ABSOLUTE NEUT (AUTO) 10.6 10^3/uL (1.7-8.2); BASOPHILS % (AUTO) 0.6 % (0-2); EOSINOPHILS % (AUTO) 0.4 % (0-6); HEMATOCRIT 41.5 % (37.9-51.0); HEMOGLOBIN 13.9 g/dL (13.5-17.0); HGB HCT DIFFERENCE 0.2; LYMPHOCYTES % (AUTO) 13.5 % (13-45); MEAN CORPUSCULAR HEMOGLOBIN 28.1 pg (27.0-33.4); MEAN CORPUSCULAR HGB CONC 33.5 g/dL (32.0-36.0); MEAN CORPUSCULAR VOLUME 84 fl (80-97); RED BLOOD COUNT 4.95 10^6/uL (4.35-5.55); RED CELL DISTRIBUTION WIDTH 12.8 % (11.5-14.0); SEGMENTED NEUTROPHILS % (AUTO) 78.5 % (42-78); WHITE BLOOD COUNT 13.5 10^3/uL (4.0-10.5)
[2016-06-13 07:37] LABS: ANION GAP 13 (5-19); BLOOD UREA NITROGEN 22 mg/dL (7-20); CALCIUM 9.2 mg/dL (8.4-10.2); CARBON DIOXIDE 23 mmol/L (22-30); CHLORIDE 104 mmol/L (98-107); CREATININE RESULT 1.15 mg/dL (0.52-1.25); GLUCOSE 108 mg/dL (75-110); POTASSIUM 4.5 mmol/L (3.6-5.0); SODIUM 139.6 mmol/L (137-145)
[2016-06-13] MEDS: IPRATROPIUM/ALBUTEROL 0.5-2.5 MG/3 ML AMPUL NEB SCH ×3 (07:56→19:42)
--- NOTE | 2016-06-13 08:15 | PDOC PROGRESS REPORT ---
Subjective Progress Note for:: 06/13/16 Subjective:: Patient is at present is feeling better this morning still has some on and off cough he had patient's move around in the hallway and denied any chest pain no shows of the breath. No fever overnight. Physical Exam Vital Signs: Temp Pulse Resp BP Pulse Ox 97.6 F 66 16 139/84 H 96 06/12/16 23:50 06/13/16 07:58 06/13/16 07:58 06/12/16 23:50 06/13/16 07:58 Intake & Output 06/12/16 06/13/16 06/14/16 06:59 06:59 06:59 Intake Total 1690 2625 Balance 1690 2625 Weight 131 kg General appearance: PRESENT: no acute distress Head exam: PRESENT: normocephalic Eye exam: PRESENT: PERRLA Mouth exam: PRESENT: neck supple Respiratory exam: PRESENT: clear to auscultation dee Cardiovascular exam: PRESENT: +S1, +S2 GI/Abdominal exam: PRESENT: normal bowel sounds, soft. ABSENT: tenderness Extremities exam: ABSENT: pedal edema Neurological exam: PRESENT: alert, awake, oriented to person, oriented to place Psychiatric exam: PRESENT: normal mood Skin exam: PRESENT: normal color Results Laboratory Results: 06/13/16 06:50 06/13/16 06:50 06/12/16 06/12/16 06/13/16 05:40 05:40 06:50 WBC 14.4 H 13.5 H RBC 5.02 4.95 Hgb 14.2 13.9 Hct 42.5 41.5 MCV 85 84 MCH 28.4 28.1 MCHC 33.5 33.5 RDW 13.1 12.8 Plt Count 224 200 Seg Neutrophils % Not Reportable 78.5 H Lymphocytes % Not Reportable 13.5 Monocytes % Not Reportable 7.0 Eosinophils % Not Reportable 0.4 Basophils % Not Reportable 0.6 Absolute Neutrophils Not Reportable 10.6 H Absolute Lymphocytes Not Reportable 1.8 Absolute Monocytes Not Reportable 0.9 Absolute Eosinophils Not Reportable 0.1 Absolute Basophils Not Reportable 0.1 Sodium 139.1 Potassium 4.6 Chloride 102 Carbon Dioxide 24 Anion Gap 13 BUN 22 H Creatinine 1.07 Est GFR ( Amer) > 60 Est GFR (Non-Af Amer) > 60 Glucose 108 Calcium 9.6 06/13/16 06:50 WBC RBC Hgb Hct MCV MCH MCHC RDW Plt Count Seg Neutrophils % Lymphocytes % Monocytes % Eosinophils % Basophils % Absolute Neutrophils Absolute Lymphocytes Absolute Monocytes Absolute Eosinophils Absolute Basophils Sodium 139.6 Potassium 4.5 Chloride 104 Carbon Dioxide 23 Anion Gap 13 BUN 22 H Creatinine 1.15 Est GFR ( Amer) > 60 Est GFR (Non-Af Amer) > 60 Glucose 108 Calcium 9.2 06/11/16 10:30 Sputum AFB Smear Concentration - Final 06/11/16 10:30 Sputum Acid Fast Bacilli Smear - Final Impressions: Chest CT 06/10/16 00:00 IMPRESSION: Evidence of old granulomatous disease with multiple small less than 5 mm calcified and noncalcified granulomas bilaterally, and a right lower hilar/ subcarinal calcified lymph node. Indeterminate nodule right lower lobe along a bandlike scar. Nodule measures 1.4 x 0.9 cm in size. This is likely benign postinflammatory change. Consider serial follow-up noncontrast CT to document stability, or PET-CT for further evaluation Chest X-Ray 06/10/16 00:00 IMPRESSION: NO SIGNIFICANT RADIOGRAPHIC FINDING IN THE CHEST. Assessment & Plan - Diagnosis (1) Acute deep vein thrombosis (DVT) of right popliteal vein Is this a current diagnosis for this admission?: YesPlan: start xeralto consult dr coats for recuurent episode (2) Cough Is this a current diagnosis for this admission?: YesPlan: continue the current medications (3) Bronchitis Is this a current diagnosis for this admission?: YesPlan: Continues IV antibiotics and the steroid (4) Solitary pulmonary nodule on lung CT Is this a current diagnosis for this admission?: YesPlan: f/u with dr coats - Time Time Spent with patient: 15-24 minutes Medications reviewed and adjusted accordingly: Yes Anticipated discharge: Home Within: within 24 hours - Inpatient Certification Medical Necessity: Need for IV Antibiotics - Plan Summary Plan Summary: Continues IV antibiotics and hopefully patient discharged home very soon
--- NOTE | 2016-06-13 09:04 | PDOC PROGRESS REPORT ---
Subjective Progress Note for:: 06/13/16 Subjective:: No acute events overnight Physical Exam Vital Signs: Temp Pulse Resp BP Pulse Ox 97.8 F 66 16 144/84 H 96 06/13/16 07:40 06/13/16 07:58 06/13/16 07:58 06/13/16 07:40 06/13/16 07:58 Intake & Output 06/12/16 06/13/16 06/14/16 06:59 06:59 06:59 Intake Total 1690 2625 Balance 1690 2625 Weight 131 kg General appearance: PRESENT: no acute distress, well-developed, well-nourished Head exam: PRESENT: atraumatic, normocephalic Eye exam: PRESENT: conjunctiva pink, EOMI, PERRLA. ABSENT: scleral icterus Ear exam: PRESENT: normal external ear exam Mouth exam: PRESENT: moist, tongue midline Neck exam: ABSENT: carotid bruit, JVD, lymphadenopathy, thyromegaly Respiratory exam: PRESENT: clear to auscultation dee. ABSENT: rales, rhonchi, wheezes Cardiovascular exam: PRESENT: RRR. ABSENT: diastolic murmur, rubs, systolic murmur Pulses: PRESENT: normal dorsalis pedis pul Vascular exam: PRESENT: normal capillary refill GI/Abdominal exam: PRESENT: normal bowel sounds, soft. ABSENT: distended, guarding, mass, organolmegaly, rebound, tenderness Rectal exam: PRESENT: deferred Extremities exam: PRESENT: full ROM. ABSENT: calf tenderness, clubbing, pedal edema Neurological exam: PRESENT: alert, awake, oriented to person, oriented to place , oriented to time, oriented to situation, CN II-XII grossly intact. ABSENT: motor sensory deficit Psychiatric exam: PRESENT: appropriate affect, normal mood. ABSENT: homicidal ideation, suicidal ideation Skin exam: PRESENT: dry, intact, warm. ABSENT: cyanosis, rash Results Laboratory Results: 06/13/16 06:50 06/13/16 06:50 06/13/16 06/13/16 06:50 06:50 WBC 13.5 H RBC 4.95 Hgb 13.9 Hct 41.5 MCV 84 MCH 28.1 MCHC 33.5 RDW 12.8 Plt Count 200 Seg Neutrophils % 78.5 H Lymphocytes % 13.5 Monocytes % 7.0 Eosinophils % 0.4 Basophils % 0.6 Absolute Neutrophils 10.6 H Absolute Lymphocytes 1.8 Absolute Monocytes 0.9 Absolute Eosinophils 0.1 Absolute Basophils 0.1 Sodium 139.6 Potassium 4.5 Chloride 104 Carbon Dioxide 23 Anion Gap 13 BUN 22 H Creatinine 1.15 Est GFR ( Amer) > 60 Est GFR (Non-Af Amer) > 60 Glucose 108 Calcium 9.2 06/11/16 10:30 Sputum AFB Smear Concentration - Final 06/11/16 10:30 Sputum Acid Fast Bacilli Smear - Final Impressions: Chest CT 06/10/16 00:00 IMPRESSION: Evidence of old granulomatous disease with multiple small less than 5 mm calcified and noncalcified granulomas bilaterally, and a right lower hilar/ subcarinal calcified lymph node. Indeterminate nodule right lower lobe along a bandlike scar. Nodule measures 1.4 x 0.9 cm in size. This is likely benign postinflammatory change. Consider serial follow-up noncontrast CT to document stability, or PET-CT for further evaluation Chest X-Ray 06/10/16 00:00 IMPRESSION: NO SIGNIFICANT RADIOGRAPHIC FINDING IN THE CHEST. Assessment & Plan - Diagnosis (1) Acute deep vein thrombosis (DVT) of right popliteal vein Is this a current diagnosis for this admission?: YesPlan: Continue with blood thinner, patient will see us as an outpatient (2) Solitary pulmonary nodule on lung CT Is this a current diagnosis for this admission?: YesPlan: Further workup planned as an outpatient, likely PET/CT - Time Time Spent with patient: 15-24 minutes Critical Time spent with patient: 15-24 minutes
[2016-06-13] MEDS: LANSOPRAZOLE 30 MG TAB.RAP.DR PO SCH (09:34)
[2016-06-13] MEDS: CEFEPIME 1 GM/D5W RTU 1 GM/50 ML RTUPB IV SCH ×2 (09:34→21:31)
[2016-06-13] MEDS: BENZONATATE 100 MG CAPSULE PO SCH ×3 (09:35→17:38)
[2016-06-13] MEDS: PREDNISONE 20 MG TABLET PO SCH ×2 (09:35→17:38)
[2016-06-13] MEDS: RIVAROXABAN 15 MG TABLET PO SCH ×2 (09:35→17:38)
[2016-06-13] MEDS: LEVOFLOXACIN 500 MG TABLET PO SCH (09:35)
[2016-06-13 21:08] LABS: QUANTIFERON TB ANTIGEN VALUE 0.02 IU/mL (.); QUANTIFERON TB NIL VALUE 0.03 IU/mL (.)
[2016-06-14 07:05] LABS: HEMATOCRIT 44.3 % (37.9-51.0); HGB HCT DIFFERENCE -2.3; MEAN CORPUSCULAR HEMOGLOBIN 27.1 pg (27.0-33.4); MEAN CORPUSCULAR HGB CONC 31.7 g/dL (32.0-36.0); MEAN CORPUSCULAR VOLUME 85 fl (80-97); RED BLOOD COUNT 5.19 10^6/uL (4.35-5.55); RED CELL DISTRIBUTION WIDTH 13.1 % (11.5-14.0); WHITE BLOOD COUNT 14.2 10^3/uL (4.0-10.5)
[2016-06-14 07:16] LABS: ANION GAP 11 (5-19); BLOOD UREA NITROGEN 23 mg/dL (7-20); CALCIUM 8.8 mg/dL (8.4-10.2); CARBON DIOXIDE 26 mmol/L (22-30); CHLORIDE 102 mmol/L (98-107); CREATININE RESULT 1.15 mg/dL (0.52-1.25); GLUCOSE 93 mg/dL (75-110); POTASSIUM 4.5 mmol/L (3.6-5.0); SODIUM 139.2 mmol/L (137-145)
[2016-06-14 07:32] LABS: BASOPHILS % (MANUAL) 0 % (0-2); EOSINOPHILS % (MANUAL) 0 % (0-6); LYMPHOCYTES % (MANUAL) 22 % (13-45); TOTAL CELLS COUNTED 100
[2016-06-14 07:33] LABS: OVALOCYTES SLIGHT
[2016-06-14] MEDS: IPRATROPIUM/ALBUTEROL 0.5-2.5 MG/3 ML AMPUL NEB SCH (07:43)
[2016-06-14 09:12] VITALS: BP 141/81
--- NOTE | 2016-06-17 11:29 | DISCHARGE SUMMARY E ---
Discharge Summary NAME: LILLIANA MURPHY : 1970 AGE: 45Y ADMITTED: 06/09/2016 DISCHARGED: 06/14/2016 ADMITTING DIAGNOSES: 1. Acute right-sided leg pain with acute deep venous thrombosis. 2. Acute bronchitis. 3. Cough. 4. Leukocytosis. DISCHARGE DIAGNOSES: 1. Acute right right-sided DVT recurrent, currently on Xarelto. 2. Old granulomatous disease with the pulmonary nodules. 3. Acute bronchitis. 4. Leukocytosis. 5. Cough. CONSULTATIONS: 1. Dr. Pearson, pulmonary. 2. Dr. Posey, oncologist/prevocational/rehabilitation counselor. PROCEDURES: None. COMPLICATIONS: None. DIAGNOSTICS: Venous Doppler study was of acute DVT in the right lower extremities. Chest CT was performed which shows the patient have evidence of the gallbladder disease with the multiple small, less than 5 mm, bilateral and right lower hilar calcified lymph node, intermittent nodules in right lower lobe and . Nodules measure 1.4 x . This is likely benign postinflammatory changes. LABORATORY: WBC is 142.2, hemoglobin 14.0, platelets are 214. Patient's segment is all normal. Patient most likely probably from the steroid induced leukocytosis. Sodium is 139, potassium is 4.5, BUN is 23, creatinine is 1.15. AST and ALT within normal limits. Patient's TB gold test was negative. INR is 0.97. Microbiology: Gram stain, reduced gissel, AFB *------* #1 is sputum cultures with the epithelial cells. Patient's second one is still pending. Patient's acid fast, one sputum is negative also. PHYSICAL EXAMINATION: VITAL SIGNS: Blood pressure was 141/81, temperature is 97.9, pulse is 74, respirations were 18-20, O2 sat 100% on room air. MEDICATIONS ON DISCHARGE: 1. Xarelto 15 mg p.o. b.i.d. for the first 20 days and then 20 daily. 3. Tessalon Perles daily. 4. DuoNeb nebulizer q.6 p.r.n. 5. Patient was put on Bactrim DS 1 tablet twice daily for 7 days. 6. Patient is taking the pain medications also. 7. Pulmicort nebulizer twice a day for 7 days. FOLLOWUP: Patient needs to follow in the office in 1 week to repeat the CBC and chem-7. Patient needs to follow with Dr. Posey for further evaluation of the pulmonary nodules and the DVT. Patient follow outpatient with Dr. Pearson. FAMILY DISCUSSION: Discussed with the patient and the regarding the patient's current condition. Patient really wants to go home today and is feeling much better. HOSPITAL COURSE: This is a 45-year-old male basically presented to the emergency department for right lower extremity pain. Patient has history of DVT in the past and was on Xarelto. Patient was started on Xarelto again. Dr. Posey was consulted with the recurrent DVT. Patient has ongoing bronchitis as an outpatient and treated with p.o. antibiotics and the p.o. steroids. Patient, at this point, admitted in the hospital with some IV antibiotics. Dr. Pearson was consulted who did CT of the chest. No sign of any acute pneumonia, just more likely granulomatous and postinflammatory changes. Patient, otherwise, responds very well with that. Patient's cough is still on and off. White count is slightly elevated but I think it is coming from the steroids. Patient, at this point, discharged home in stable condition. Patient has no fever. Patient is walking around in the hallway. His p.o. intake is good. Follow as an outpatient as above. More than 35 minutes spent examining the patient and reviewing the records. DICTATING PHYSICIAN: MELANIE MATTHEW M.D. [id number] Y#: [id number] ID: [id number] JOB#: [id number] ACCT: [id number] cc:MELANIE MATTHEW M.D. >
== END 2016-06-14 10:30 | disposition home or self-care (01) | DRG 301 ==
LOC: ER 16:03 → INTOOBSV 20:32 → UNDOADMOB 20:32 → EH 20:32 → 5 21:56 → EH 23:09 → 5 23:09 → OBSVTOIN 23:09
PROVIDERS: ADMIT Family Medicine; ATTEND Family Medicine
DX: I82.411 Acute embolism and thrombosis of right femoral vein (principal); I82.431 Acute embolism and thrombosis of right popliteal vein; J40 Bronchitis, not specified as acute or chronic; R91.1 Solitary pulmonary nodule; K21.9 Gastro-esophageal reflux disease without esophagitis; Z86.718 Personal history of other venous thrombosis and embolism
CPT/HCPCS: 36415; 71020; 71250; 80048; 80053; 85025; 85610; 85730; 86480; 87015; 87070; 87116; 87205; 87206; 93971; 94640; 94667; 94799; 99285; J0692; J2920; J3490; J7512; J7620

== ENCOUNTER → 2016-07-19 | Outpatient (CLI) | payer OTHER | LOC: RAD 12:08 | PROVIDERS: ATTEND Internal Medicine | DX: R91.1 Solitary pulmonary nodule (principal); J98.4 Other disorders of lung | CPT/HCPCS: 78815; A9552 ==

== ENCOUNTER → 2017-02-17 | Outpatient (CLI) | payer OTHER ==
--- NOTE | 2017-02-17 16:51 | RADIOLOGY REPORT (SQ) ---
EXAM DESCRIPTION: FOOT LEFT COMPLETE COMPLETED DATE/TIME: 02/17/2017 4:43 pm REASON FOR STUDY: PAIN IN LEFT FOOT M79.672 PAIN IN LEFT FOOT COMPARISON: None. NUMBER OF VIEWS: Three views. TECHNIQUE: AP, lateral and oblique without weight bearing radiographic images acquired of the left f oot. LIMITATIONS: None. FINDINGS: MINERALIZATION: Normal. BONES: No acute fracture or dislocation. No worrisome bone lesions. No significant osteophytes. JOINTS: No erosions. No hoa-articular osteopenia. No chondrocalcinosis. SOFT TISSUES: No swelling. No calcifications. OTHER: No other significant finding. IMPRESSION: NEGATIVE STUDY OF THE LEFT FOOT. NO ACUTE POST-TRAUMATIC CHANGES. NO EXPLANATION FOR PA IN. TECHNICAL DOCUMENTATION: JOB ID: [id number] [employer]- All Rights Reserved
== END ==
LOC: OD 16:19
PROVIDERS: ATTEND Family Medicine
DX: M79.672 Pain in left foot (principal)

== ENCOUNTER → 2017-07-01 | Outpatient (CLI) | payer OTHER ==
--- NOTE | 2017-07-01 16:30 | RADIOLOGY REPORT (SQ) ---
EXAM DESCRIPTION: FOOT LEFT COMPLETE COMPLETED DATE/TIME: 07/01/2017 3:57 pm REASON FOR STUDY: PAIN IN LEFT FOOT M79.672 PAIN IN LEFT FOOT COMPARISON: 02/17/2017 NUMBER OF VIEWS: Three views. TECHNIQUE: AP, lateral and oblique without weight bearing radiographic images acquired of the left f oot. LIMITATIONS: None. FINDINGS: MINERALIZATION: Normal. BONES: No acute fracture or dislocation. No worrisome bone lesions. No significant osteophytes. JOINTS: No erosions. No hoa-articular osteopenia. No chondrocalcinosis. SOFT TISSUES: No swelling. No calcifications. OTHER: No other significant finding. IMPRESSION: NEGATIVE STUDY OF THE LEFT FOOT. NO EXPLANATION FOR PAIN. TECHNICAL DOCUMENTATION: JOB ID: [id number] [employer]- All Rights Reserved
== END ==
LOC: OD 15:42
PROVIDERS: ATTEND Family Medicine
DX: M79.672 Pain in left foot (principal)

== ENCOUNTER 2018-02-19 15:37 | Emergency (ER) | payer OTHER ==
--- NOTE | 2018-02-19 16:40 | RADIOLOGY REPORT (SQ) ---
EXAM DESCRIPTION: FOOT RIGHT COMPLETE COMPLETED DATE/TIME: 02/19/2018 4:30 pm REASON FOR STUDY: pain s/p injury COMPARISON: None. NUMBER OF VIEWS: Three views. TECHNIQUE: AP, lateral and oblique radiographic images acquired of the right foot. LIMITATIONS: None. FINDINGS: MINERALIZATION: Normal. BONES: There is a comminuted fracture of the proximal 5th metatarsal. This is nondisplaced. JOINTS: No effusions. SOFT TISSUES: No soft tissue swelling. No foreign body. OTHER: No other significant finding. IMPRESSION: Comminuted fracture of the base of the 5th metatarsal. TECHNICAL DOCUMENTATION: JOB ID: [id number] [employer]- All Rights Reserved Reading location - IP/workstation name: [email or web address]
[2018-02-19] MEDS ORDERED: ACETAMINOPHEN 325 MG TABLET PO ONE (16:46)
[2018-02-19] MEDS ORDERED: MORPHINE SULFATE IR 15 MG TABLET PO ONE (16:55)
--- NOTE | 2018-02-19 16:59 | ER Document Report ---
ED General - General Chief Complaint: Foot Injury Stated Complaint: FOOT INJURY Time Seen by Provider: 02/19/18 16:54 TRAVEL OUTSIDE OF THE [place] IN LAST 30 DAYS: No - HPI Patient complains to provider of: Foot injury Notes: Patient coming in for evaluation of right foot pain. Patient states he had a drop on his right foot felt a snap patient has been amatory with limping gait. Patient states currently on blood thinning medications relative because of a history of DVT PE. Patient otherwise is resting comfortably denies any other injuries. - Related Data Allergies/Adverse Reactions: No Known Allergies Allergy (Verified 02/19/18 15:38) Past Medical History - Social History Smoking Status: Unknown if Ever Smoked Family History: Reviewed & Not Pertinent, Other - mother had dvt Patient has suicidal ideation: No Patient has homicidal ideation: No - Past Medical History Cardiac Medical History: Reports: Hx DVT - Right lower extremity 06/2015 anticoagulation until 09/2015 Denies: Hx Congestive Heart Failure, Hx Coronary Artery Disease, Hx Heart Attack, Hx Hypertension Pulmonary Medical History: Reports: Hx Bronchitis - Currently have, Hx COPD, Hx Pneumonia, 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 Denies: Hx Cirrhosis, Hx Ulcer Musculoskeletal Medical History: Denies Hx Arthritis, Denies Hx Multiple Sclerosis Psychiatric Medical History: Denies: Hx Bipolar Disorder, Hx Depression, Hx Schizophrenia Past Surgical History: Reports: Hx Orthopedic Surgery - left shoulder rotator cuff, right elbow bone spur, bilateral knee scopes - Immunizations Hx Diphtheria, Pertussis, Tetanus Vaccination: Yes Review of Systems - Review of Systems Constitutional: No symptoms reported EENT: No symptoms reported Cardiovascular: No symptoms reported Respiratory: No symptoms reported Gastrointestinal: No symptoms reported Genitourinary: No symptoms reported Male Genitourinary: No symptoms reported Musculoskeletal: Other - Foot pain Skin: No symptoms reported Hematologic/Lymphatic: No symptoms reported Neurological/Psychological: No symptoms reported -: Yes All other systems reviewed and negative Physical Exam - Vital signs Vitals: Temp Pulse Resp BP Pulse Ox 98.2 F 72 16 125/76 97 02/19/18 15:46 02/19/18 15:46 02/19/18 15:46 02/19/18 15:46 02/19/18 15:46 Interpretation: Normal - General General appearance: Appears well, Alert - HEENT Head: Normocephalic, Atraumatic Eyes: Normal Pupils: PERRL - Respiratory Respiratory status: No respiratory distress Chest status: Nontender Breath sounds: Normal Chest palpation: Normal - Cardiovascular Rhythm: Regular Heart sounds: Normal auscultation Murmur: No - Abdominal Inspection: Normal Distension: No distension Bowel sounds: Normal Tenderness: Nontender Organomegaly: No organomegaly - Back Back: Normal, Nontender - Extremities General upper extremity: Normal inspection, Nontender, Normal color, Normal ROM , Normal temperature General lower extremity: Normal color, Normal temperature, Normal weight bearing , Other - Patient with tenderness palpation of the fifth metatarsal. No: Vanda' s sign - Neurological Neuro grossly intact: Yes Cognition: Normal Orientation: AAOx4 Shamika Coma Scale Eye Opening: Spontaneous Harvest Coma Scale Verbal: Oriented Harvest Coma Scale Motor: Obeys Commands Shamika Coma Scale Total: 15 Speech: Normal Motor strength normal: LUE, RUE, LLE, RLE Sensory: Normal - Psychological Associated symptoms: Normal affect, Normal mood - Skin Skin Temperature: Warm Skin Moisture: Dry Skin Color: Normal Course - Re-evaluation Re-evalutation: 02/20/18 13:56 Patient with a fracture of the right fifth metatarsal. Patient was placed in a postop shoe and given crutches. Patient was given with a follow-up pain control for home patient discharged - Vital Signs Vital signs: Temp Pulse Resp BP Pulse Ox 98.2 F 70 16 122/73 98 02/19/18 15:46 02/19/18 17:02 02/19/18 17:02 02/19/18 17:02 02/19/18 17:02 Discharge - Discharge Clinical Impression: Fracture of fifth metatarsal bone of right foot Qualifiers: Encounter type: initial encounter Fracture type: closed Fracture alignment: nondisplaced Qualified Code(s): S92.354A - Nondisplaced fracture of fifth metatarsal bone, right foot, initial encounter for closed fracture Condition: Good Disposition: HOME, SELF-CARE Instructions: Foot Fracture ([facility]) Additional Instructions: Take pain medication as prescribed for severe pain. Return to the ER for any complications. Would also recommend taking Tylenol and Motrin for regular pain. Follow-up with the orthopedic doctor provided call their office tomorrow to schedule an appointment. Prescriptions: Morphine Sulfate [Morphine Ir 15 Mg Tablet] 15 mg PO TID #18 tablet Referrals: MELANIE MATTHEW MD [Primary Care Provider] - Follow up as needed MARIA G ILU MD [ACTIVE STAFF] - Follow up as needed (Call tomorrow for follow- up appointment)
[2018-02-19 17:04] VITALS: BP 122/73
== END 2018-02-19 17:02 | disposition home or self-care (01) ==
LOC: ER 15:37
DX: S92.354A Nondisplaced fracture of fifth metatarsal bone, right foot, initial encounter for closed fracture (principal); M79.671 Pain in right foot; M21.371 Foot drop, right foot; X58.XXXA Exposure to other specified factors, initial encounter; J44.9 Chronic obstructive pulmonary disease, unspecified
CPT/HCPCS: 99283

== ENCOUNTER → 2018-05-29 | Outpatient (CLI) | payer OTHER ==
--- NOTE | 2018-05-29 09:01 | RADIOLOGY REPORT (SQ) ---
EXAM DESCRIPTION: CT CHEST WITHOUT COMPLETED DATE/TIME: 05/29/2018 8:17 am REASON FOR STUDY: R91.7 SOLITARY PULMONARY NODULE R91.1 SOLITARY PULMONARY NODULE COMPARISON: 06/10/2016 TECHNIQUE: CT scan performed of the chest without intravenous contrast. Images reviewed with lung, soft tissue and bone windows. Reconstructed coronal and sagittal MPR images reviewed. All images st ored on PACS. All CT scanners at this facility use dose modulation, iterative reconstruction, and/or weight based d osing when appropriate to reduce radiation dose to as low as reasonably achievable (ALARA). [facility]: Dose Right [facility]: CareDose [facility]: Dose Right [facility]: Teradose 4D [facility]: Proximus RADIATION DOSE: CT Rad equipment meets quality standard of care and radiation dose reduction techniq ues were employed. CTDIvol: 19.4 mGy. DLP: 822 mGy-cm. mGy. LIMITATIONS: No technical limitations. FINDINGS: LUNGS AND PLEURA: Stable nodule along the major fissure in the right lower lobe measuring 1.4 x 0.9 cm. No new nodules. No effusions. HILAR AND MEDIASTINAL STRUCTURES: Calcified mediastinal nodes. HEART AND VASCULAR STRUCTURES: No aneurysm. No pericardial effusion. UPPER ABDOMEN: Gallstones. Limited exam. THYROID AND OTHER SOFT TISSUES: No masses. No adenopathy. BONES: No significant finding. HARDWARE: None in the chest. OTHER: No other significant findings. IMPRESSION: Stable pulmonary nodule. TECHNICAL DOCUMENTATION: JOB ID: [id number] Quality ID # [id number]: Final reports with documentation of one or more dose reduction techniques (e.g., Au tomated exposure control, adjustment of the mA and/or kV according to patient size, use of iterative reconstruction technique) 2010 [employer]- All Rights Reserved Reading location - IP/workstation name: [email or web address]
== END ==
LOC: RAD 08:54
PROVIDERS: ATTEND Internal Medicine
DX: R91.1 Solitary pulmonary nodule (principal); J98.4 Other disorders of lung
CPT/HCPCS: 71250

== ENCOUNTER → 2018-06-23 | Outpatient (CLI) | payer OTHER ==
--- NOTE | 2018-06-23 12:58 | RADIOLOGY REPORT (SQ) ---
EXAM DESCRIPTION: CHEST PA/LATERAL COMPLETED DATE/TIME: 06/23/2018 12:46 pm REASON FOR STUDY: PRE-OP COMPARISON: 06/10/2016 EXAM PARAMETERS: NUMBER OF VIEWS: two views TECHNIQUE: Digital Frontal and Lateral radiographic views of the chest acquired. RADIATION DOSE: NA LIMITATIONS: none FINDINGS: LUNGS AND PLEURA: No opacities, masses or pneumothorax. No pleural effusion. MEDIASTINUM AND HILAR STRUCTURES: No masses or contour abnormalities. HEART AND VASCULAR STRUCTURES: Heart normal size. No evidence for failure. BONES: No acute findings. HARDWARE: None in the chest. OTHER: No other significant finding. IMPRESSION: No evidence of acute cardiopulmonary process. TECHNICAL DOCUMENTATION: JOB ID: [id number] [employer]- All Rights Reserved Reading location - IP/workstation name: [email or web address]
[2018-06-23 13:20] LABS: ANION GAP 9 (5-19); BLOOD UREA NITROGEN 11 mg/dL (7-20); CALCIUM 9.6 mg/dL (8.4-10.2); CARBON DIOXIDE 27 mmol/L (22-30); CHLORIDE 104 mmol/L (98-107); GLUCOSE 79 mg/dL (75-110); POTASSIUM 4.6 mmol/L (3.6-5.0); SODIUM 140.2 mmol/L (137-145)
--- NOTE | 2018-06-23 19:39 | EKG REPORT ---
SEVERITY:- NORMAL ECG - SINUS RHYTHM : Confirmed by: Simran Davis MD 23-Jun-2018 19:39:09
[2018-06-25 08:50] LABS: HEMATOCRIT 43.7 % (37.9-51.0); HEMOGLOBIN 15.2 g/dL (13.5-17.0); MEAN CORPUSCULAR HEMOGLOBIN 29.3 pg (27.0-33.4); MEAN CORPUSCULAR HGB CONC 34.8 g/dL (32.0-36.0); MEAN CORPUSCULAR VOLUME 84 fl (80-97); PLATELET COUNT 185 10^3/uL (150-450); RED BLOOD COUNT 5.19 10^6/uL (4.35-5.55); RED CELL DISTRIBUTION WIDTH 13.3 % (11.5-14.0); WHITE BLOOD COUNT 6.5 10^3/uL (4.0-10.5)
== END ==
LOC: OD 11:29
PROVIDERS: ATTEND Surgery
DX: Z01.818 Encounter for other preprocedural examination (principal)
CPT/HCPCS: 36415; 71046; 80048; 85027; 93005; 93010

== ENCOUNTER 2018-06-26 10:00 | Day surgery (SDC) | payer OTHER ==
[~2018-06-26 10:00] MED LIST: CEFAZOLIN 2 GM/D5W RTU 2 GM/50 ML RTUPB IV PRN; IBUPROFEN 800 MG in NORMAL SALINE 250 ML IV PRN; LACTATED RINGERS 1000 ML IV PRN
[2018-06-26] MEDS ORDERED: CEFAZOLIN 2 GM/D5W RTU 2 GM/50 ML RTUPB IV ONE (10:22)
[2018-06-26] MEDS ORDERED: SUCCINYLCHOLINE CHLORIDE INJ 200 MG/10 ML VIAL ONE (10:29)
[2018-06-26] MEDS ORDERED: DEXAMETHASONE SOD PHOSPHATE INJ 4 MG/1 ML VIAL ONE (10:29)
[2018-06-26] MEDS ORDERED: ONDANSETRON HCL INJ/PF 4 MG/2 ML SDV ONE (10:29)
[2018-06-26] MEDS ORDERED: ROCURONIUM BROMIDE INJ 50 MG/5 ML VIAL IV ONE (10:29)
[2018-06-26 10:53] LABS: INTERNATIONAL RATION (INR) 0.93
[2018-06-26 10:54] LABS: PARTIAL THROMBOPLASTIN TIME 26.8 SEC (23.5-35.8)
[2018-06-26] MEDS ORDERED: FENTANYL CITRATE INJ/PF 100 MCG/2 ML AMPUL ONE ×2 (12:51→16:15)
[2018-06-26] MEDS ORDERED: HYDROMORPHONE HCL INJ/PF 2 MG/ML AMPULE ONE (12:51)
[2018-06-26] MEDS ORDERED: MIDAZOLAM 2 MG/2 ML INJ ONE (12:51)
[2018-06-26] MEDS ORDERED: PROPOFOL INJ 200 MG/20 ML VIAL IV ONE (12:52)
[2018-06-26] MEDS ORDERED: ACETAMINOPHEN 1,000 MG/100 ML RTUPB IV ONE (12:52)
[2018-06-26] MEDS ORDERED: BUPIVACAINE HCL 0.25 % INJ/PF (2.5 MG/1 ML) 30 ML VIAL ONE (13:26)
[2018-06-26] MEDS ORDERED: ONDANSETRON HCL INJ/PF 4 MG/2 ML SDV IV PRN (14:20)
[2018-06-26] MEDS ORDERED: FENTANYL CITRATE INJ/PF 100 MCG/2 ML AMPUL IV PRN ×3 (14:20)
[2018-06-26] MEDS ORDERED: PROMETHAZINE HCL INJ 25 MG/1 ML VIAL IV PRN (14:20)
[2018-06-26] MEDS ORDERED: DIPHENHYDRAMINE HCL 50 MG/ML VIAL IV PRN (14:20)
[2018-06-26] MEDS ORDERED: MEPERIDINE HCL/PF INJ 25 MG/1 ML DISP.SYRIN IV PRN (14:20)
[2018-06-26] MEDS ORDERED: MORPHINE SULFATE 10 MG/ML INJ IV PRN (14:20)
[2018-06-26] MEDS ORDERED: KETOROLAC TROMETHAMINE INJ/PF 30 MG/1 ML SDV ONE (17:38)
[2018-06-26] MEDS ORDERED: HYDROCODONE/ACETAMINOPHEN 10-325 MG TABLET ONE (20:31)
[2018-06-26 21:01] VITALS: BP 124/82
--- NOTE | 2018-06-29 08:59 | Discharge Summary ---
Discharge Summary (SDC) - Discharge Final Diagnosis: Umbilical hernia, incarcerated Date of Surgery: 06/26/18 Discharge Date: 06/26/18 Condition: Stable Forms: ASU Anesthesia D/C Instruction, Discharge POC-Surgical Service Treatment or Instructions: Discharge home. Diet as tolerated. Activity: No lifting greater than 10 pounds x 6 weeks after surgery. Follow-up with me in 7-10 days. [place] 10/325 mg p.o. every 6 hours as needed for pain. Belb-gny-grkyfoq ibuprofen as needed for breakthrough pain. Okay to shower in 48 hours. No tub baths or swimming pools times 2 weeks. Referrals: MELANIE MATTHEW MD [Primary Care Provider] - VERNON ARANDA MD [ACTIVE STAFF] - (Follow up as instructed) Discharge Diet: As Tolerated Respiratory Treatments at Home: Deep Breathing/Coughing, Incentive Spirometer Discharge Activity: Balance Activity w/Rest, No Lifting Over 10 Pounds, No Lifting/Push/Pulling Home Care Assistance: Provided by Family Report the Following to Your Physician Immediately: Shortness of Breath, Nausea, Vomiting, Increase in Pain, Fever over 101 Degrees, Unusual Bleeding, Redness, Swelling, Warmth, Increased Soreness, Numbness, IV Site Infection Signs
--- NOTE | 2018-06-29 09:10 | Operative Report ---
Nonrecallable Operative Report DATE OF SURGERY: 06/26/18 PREOPERATIVE DIAGNOSIS: Incarcerated umbilical hernia POSTOPERATIVE DIAGNOSIS: Same as above OPERATION: Robot-assisted laparoscopic ventral hernia repair with mesh. SURGEON: VERNON ARANDA 1ST MEDIA MARKETING SPECIALIST: LUCÍA CARDOSO ANESTHESIA: GA TISSUE REMOVED OR ALTERED: None COMPLICATIONS: None apparent ESTIMATED BLOOD LOSS: Minimal PROCEDURE: Drains/implants: 10 x [address] hernia mesh. Procedure in detail: After informed consent was obtained, the patient was brought to the operating room and laid in the supine position. The area of the abdomen was prepped and draped in a normal sterile fashion. An incision was created in the left upper quadrant. The 5 mm camera and 5 mm trocar were introduced into the abdominal cavity using the Optiview technique. Gas insufflation was attached, and pneumoperitoneum was achieved. A 12 mm trocar was placed in the left lateral abdomen, and an 8 mm robotic trocar was placed in the left lower quadrant, under direct laparoscopic visualization. The 5 mm trocar was removed from the left upper quadrant and replaced with an 8 mm robotic trocar. The robot was then brought over the patient, and docked appropriately. I then assumed my position at the surgeon's console. Attention was turned to the umbilical hernia defect. There was a large amount of incarcerated omentum within the defect. This was freed using a mixture of sharp dissection and electrocautery. After clearing of the omentum, there were found to be 2 separate hernia defects, one at the umbilicus, and one superior to the umbilicus. In total, the area of the hernia defects were found to be approximately 3-4 cm in craniocaudal diameter. Once this was confirmed, a 10 x 15 cm mesh was chosen to adequately cover the defect. The defect was closed using nonabsorbable number 1 V lock suture in simple runni ng fashion. The mesh was then apposed to the anterior abdominal wall using the EPS. The mesh was then sutured to the anterior abdominal wall using nonabsorbable 2-0 V lock suture in simple running fashion. Once this was completed, the mesh was inspected. It was found to be in good place. Attention was turned to closure of the port sites. The 8 mm port sites were closed using 0 Vicryl suture in simple interrupted fashion with the aid of the Endo Close device. The 12 mm trocar site was closed in irohpy-[id number]-aknnn fashion with 0 Vicryl suture, with the aid of the Endo Close device. The trochars were then removed. The overlying skin was closed using 4-0 Vicryl Rapide suture in subcuticular fashion. Dressings were placed, and the procedure was concluded. All sponge, instrument, and needle counts were correct x2. Condition: Stable. Lucía Cardoso PA-C was scrubbed and present the entirety of the procedure. She assisted with all portions of the procedure including placement of the trochars, docking of the robot, exchanging of the robotic instruments, closure of the fascia, and closure of the skin.
== END 2018-06-26 20:50 | disposition home or self-care (01) ==
LOC: OROUT 10:00
PROVIDERS: ATTEND Surgery
DX: K42.0 Umbilical hernia with obstruction, without gangrene (principal); G47.30 Sleep apnea, unspecified; K21.9 Gastro-esophageal reflux disease without esophagitis; R91.1 Solitary pulmonary nodule; Z86.718 Personal history of other venous thrombosis and embolism; Z79.01 Long term (current) use of anticoagulants; Z79.899 Other long term (current) drug therapy
CPT/HCPCS: 49653; S2900; 36415; 85610; 85730; 86850; 86900; 86901; C1781; J0131; J0330; J0690; J1100; J1170; J1741; J1885; J2250; J2405; J2704; J3010; J3490; J7050

== ENCOUNTER 2018-06-28 01:00 | Inpatient (IN) | payer OTHER ==
[2018-06-28] MEDS ORDERED: ONDANSETRON HCL INJ/PF 4 MG/2 ML SDV IV ONE (01:11)
[2018-06-28] MEDS ORDERED: HYDROMORPHONE HCL INJ/PF 2 MG/ML AMPULE IV ONE ×2 (01:11→03:01)
[2018-06-28] MEDS ORDERED: NORMAL SALINE 1000 ML 1,000 ML IV ONE (01:12)
--- NOTE | 2018-06-28 01:14 | ER Document Report ---
ED GI/ - General Chief Complaint: Abdominal Pain Stated Complaint: POST OP ABDOMINAL PAIN Time Seen by Provider: 06/28/18 01:06 Notes: Patient is a 47-year-old male that comes to the emergency department for chief complaint of sharp mid to lower abdominal pain, he states he was doing fine postop after he had umbilical hernia repair laparoscopically by Dr. Montoya on 06/26/2018, states that he tried to get up about 3 hours ago but could not, then pain became severe, now he has sharp persistent burning/tearing pain in the mid to lower abdomen. Denies flank pain, chest pain, dizziness, passing out, vomiting, fever. He was able to eat without any difficulty today. Had a bowel movement yesterday which was normal reportedly. He is on Xarelto for history of DVT, has had orthopedic surgery, has a history of GERD, denies any medical histo ry otherwise. Denies smoking, alcohol, recreational drugs. TRAVEL OUTSIDE OF THE [place] IN LAST 30 DAYS: No - Related Data Allergies/Adverse Reactions: No Known Allergies Allergy (Verified 06/28/18 01:25) Past Medical History - General Information source: Patient - Social History Smoking Status: Never Smoker Frequency of alcohol use: None Drug Abuse: None Lives with: Family Family History: Reviewed & Not Pertinent, Other - mother had dvt - Past Medical History Cardiac Medical History: Reports: Hx DVT - Right lower extremity 06/2015 anticoagulation until 09/2015 Denies: Hx Congestive Heart Failure, Hx Coronary Artery Disease, Hx Heart Attack, Hx Hypertension Pulmonary Medical History: Reports: Hx Bronchitis - YEARLY , Hx Pneumonia, 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 Denies: Hx Cirrhosis, Hx Ulcer Musculoskeletal Medical History: Denies Hx Arthritis, Denies Hx Multiple Sclerosis Psychiatric Medical History: Denies: Hx Bipolar Disorder, Hx Depression, Hx Schizophrenia Past Surgical History: Reports: Hx Bowel Diversion - Umbilical hernia repair, Hx Orthopedic Surgery - left shoulder rotator cuff, right elbow bone spur, bilateral knee scopes - Immunizations Hx Diphtheria, Pertussis, Tetanus Vaccination: No Review of Systems - Review of Systems Constitutional: No symptoms reported EENT: No symptoms reported Cardiovascular: No symptoms reported Respiratory: No symptoms reported Gastrointestinal: See HPI Genitourinary: No symptoms reported Male Genitourinary: No symptoms reported Musculoskeletal: No symptoms reported Skin: No symptoms reported Hematologic/Lymphatic: No symptoms reported Neurological/Psychological: No symptoms reported Physical Exam - Vital signs Vitals: Temp Pulse Resp BP Pulse Ox 98.3 F 78 24 H 153/97 H 89 L 06/28/18 01:00 06/28/18 01:00 06/28/18 01:00 06/28/18 01:00 06/28/18 01:00 - Notes Notes: GENERAL: Patient alert, appears to be in pain, moderate distress HEAD: Normocephalic, atraumatic. EYES: Pupils equal, round, and reactive to light. Extraocular movements intact. ENT: Oral mucosa moist, tongue midline. Oropharynx unremarkable. Airway patent. Nares patent, no nasal septal hematoma, TM's intact. NECK: Full range of motion. Supple. Trachea midline. LUNGS: Clear to auscultation bilaterally, no wheezes, rales, or rhonchi. No respiratory distress. HEART: Regular rate and rhythm. No murmur ABDOMEN: Postop abdomen. Umbilical wound without dehiscence, arrhythmia, or noted abnormality. Generalized abdominal pain, worst in the left mid to lower abdomen with some guarding. GENITOURINARY: Deferred EXTREMITIES: Moves all 4 extremities spontaneously. No edema, normal radial and dorsalis pedis pulses bilaterally. No cyanosis. BACK: no cervical, thoracic, lumbar midline tenderness. No saddle anesthesia, normal distal neurovascular exam. NEUROLOGICAL: Alert and oriented x3. Normal speech. [cranial nerves II through XII grossly intact]. PSYCH: Slightly agitated SKIN: Warm, dry, normal turgor. No rashes or lesions noted. Course - Re-evaluation Re-evalutation: Patient appears very uncomfortable on initial evaluation, he is not tachycardic, he is not hypotensive, he is not febrile. Pain is mainly in the mid to lower abdomen, worse on the. Wound appears unremarkable and is not bleeding, purulent, or obviously infected. He is not pale. CBC shows mild leukocytosis at 11 with no shift. Hemoglobin unremarkable. Chemistry unremarkable. Urine still pending. On reevaluation after 0.5 mg of Dilaudid patient is still in a lot of pain but he is more comfortable than previously. Because of his continued pain, recent postop status, CAT scan will be performed. CAT scan showing small amount of air underneath the rectus abdominal muscle, naomi e inflammation, postop changes, incidental cholelithiasis. 06/28/18 03:[address] Shabazz, general surgeon sanitation associate, he states he will come evaluate the patient, recommends patient be re-medicated and he will reach the patient soon. Patient became much more comfortable after 1 mg of Dilaudid. He still has pain but he is much more comfortable in appearance. Dr. Shabazz evaluated the patient, patient will be admitted to the surgical service for intractable abdominal pain. - Vital Signs Vital signs: Temp Pulse Resp BP Pulse Ox 98.3 F 78 24 H 123/77 93 06/28/18 01:00 06/28/18 01:00 06/28/18 01:00 06/28/18 01:46 06/28/18 01:46 - Laboratory Result Diagrams: 06/28/18 01:20 06/28/18 01:20 Laboratory results interpreted by me: 06/28/18 06/28/18 01:20 01:20 WBC 11.1 H Chloride 108 H Creatinine 1.35 H Est GFR (Non-Af Amer) 56 L Glucose 114 H Discharge - Discharge Clinical Impression: Post-op pain, Intractable abdominal pain Condition: Stable Disposition: ADMITTED OBSERVATION Admitting Provider: Surgicalist Unit Admitted: Surgical Floor
[2018-06-28 01:33] LABS: ABSOLUTE BASOPHILS # (AUTO) 0.1 10^3/uL (0.0-0.2); ABSOLUTE LYMPHOCYTES (AUTO) 2.3 10^3/uL (0.5-4.7); ABSOLUTE MONOCYTES (AUTO) 0.7 10^3/uL (0.1-1.4); BASOPHILS % (AUTO) 0.8 % (0-2); EOSINOPHILS % (AUTO) 0.3 % (0-6); HEMATOCRIT 41.4 % (37.9-51.0); HEMOGLOBIN 14.3 g/dL (13.5-17.0); LYMPHOCYTES % (AUTO) 20.5 % (13-45); MEAN CORPUSCULAR HEMOGLOBIN 29.4 pg (27.0-33.4); MEAN CORPUSCULAR HGB CONC 34.6 g/dL (32.0-36.0); MEAN CORPUSCULAR VOLUME 85 fl (80-97); MONOCYTES % (AUTO) 6.4 % (3-13); PLATELET COUNT 187 10^3/uL (150-450); RED BLOOD COUNT 4.88 10^6/uL (4.35-5.55); RED CELL DISTRIBUTION WIDTH 13.3 % (11.5-14.0); TOTAL CELLS COUNTED % (AUTO) 100 %; WHITE BLOOD COUNT 11.1 10^3/uL (4.0-10.5)
[2018-06-28 01:43] LABS: ALANINE AMINOTRANSFERASE 22 U/L (21-72); ALKALINE PHOSPHATASE 69 U/L (38-126); ANION GAP 9 (5-19); ASPARTATE AMINO TRANSFERASE 25 U/L (17-59); BILIRUBIN,DIRECT 0.2 mg/dL (0.0-0.4); BILIRUBIN,TOTAL 0.6 mg/dL (0.2-1.3); BLOOD UREA NITROGEN 19 mg/dL (7-20); CALCIUM 8.8 mg/dL (8.4-10.2); CARBON DIOXIDE 25 mmol/L (22-30); CHLORIDE 108 mmol/L (98-107); GLUCOSE 114 mg/dL (75-110); LIPASE 96.6 U/L (23-300); POTASSIUM 4.1 mmol/L (3.6-5.0); SODIUM 141.6 mmol/L (137-145); TOTAL PROTEIN 6.5 g/dL (6.3-8.2)
--- NOTE | 2018-06-28 02:33 | RADIOLOGY REPORT (SQ) ---
EXAM DESCRIPTION: CT ABDOMEN PELVIS WITH IV CONTRAST COMPLETED DATE/TME: 06/28/2018 01:15 CLINICAL HISTORY: 47 years, Male, severe mid/lower pain, post op hernia repair COMPARISON: None. TECHNIQUE: [id number] Images stored on PACS. All CT scanners at this facility use dose modulation, iterative reconstruction, and/or weight based dosing when appropriate to reduce radiation dose to as low as reasonably achievable (ALARA). [facility]: Dose Right [facility]: CareDose [facility]: Dose Right [facility]: Teradose 4D [facility]: Smart creads LIMITATIONS: None. FINDINGS: Visualized lung bases show subsegmental atelectasis in each lung base. Osseous structures are grossly intact. Fatty infiltrative change to the liver. Several gallstones are noted. The spleen, adrenal glands, pancreas, kidneys are unremarkable. No gross evidence for bowel obstruction. No free fluid. Normal appendix. Abundant stool in the colon. Fat-containing right inguinal hernia. Partial visualization of subcutaneous gas in the scrotum extending superficial to the anterior abdominal/pelvic musculature. Per history given the patient is status post recent hernia repair. Some of the subcutaneous gas also extends more cephalad, along the lateral lower left hemithorax. There are also some minor inflammatory changes particularly along the lateral left pelvic sidewall, superficially. Small amount of gas is also noted in the region of the umbilicus and there is a small amount of extraluminal gas immediately deep to the rectus musculature near the midline. Minor surrounding inflammation.. No discrete or defined fluid collection or hematoma formation with slight asymmetry in the lateral left rectus musculature compared to the right.. Occasional sigmoid diverticuli. No CT evidence for diverticulitis.. IMPRESSION: Subcutaneous gas, as above presumably postoperative in nature. There is also a tiny amount of extraluminal air in the anterior abdomen, immediately deep to the rectus abdominis musculature. There is some minor surrounding inflammation. Fatty infiltrate of change to the liver. Subsegmental atelectasis in the lung bases. Cholelithiasis. Occasional sigmoid diverticuli. No CT evidence for diverticulitis. TECHNICAL DOCUMENTATION: Quality ID # [id number]: Final reports with documentation of one or more dose reduction techniques (e.g., Automated exposure control, adjustment of the mA and/or kV according to patient size, use of iterative reconstruction technique) copyright 2011 [email or web address]- All Rights Reserved
[2018-06-28] MEDS ORDERED: ONDANSETRON HCL INJ/PF 4 MG/2 ML SDV IV PRN (08:06)
--- NOTE | 2018-06-28 08:06 | PDOC H&P ---
History of Present Illness Admission Date/PCP: 06/28/18 06:29 MELANIE MATTHEW MD Patient complains of: Abdominal pains History of Present Illness: LILLIANA MURPHY is a 47 year old male who had laparoscopic repair of umbilical hernia by Dr Montoya 2 days ago. Started c/o abdominal pains post op getting worse last night to the point that he could not walk because of the pains. No BM since surgery. Denies nausea,vomiting,diarrhea,fever nor chills. Past Medical History Cardiac Medical History: Reports: DVT - Right lower extremity 06/2015 anticoagulation until 09/2015 Denies: Congestive Heart Failure, Coronary Artery Disease, Myocardial Infarction, Hypertension Pulmonary Medical History: Reports: Bronchitis - YEARLY , Pneumonia, Tuberculosis - Exposed, Completed TB medication, 1991 Denies: Asthma, Chronic Obstructive Pulmonary Disease (COPD) Neurological Medical History: Denies: Seizures Renal/ Medical History: Denies: End Stage Renal Disease GI Medical History: Reports: Gastroesophageal Reflux Disease, Hiatal Hernia Denies: Cirrhosis Musculoskeltal Medical History: Denies: Arthritis Psychiatric Medical History: Denies: Bipolar Disorder, Depression Hematology: Denies: Anemia, Bleeding Tendencies Past Surgical History Past Surgical History: Reports: Orthopedic Surgery - left shoulder rotator cuff, right elbow bone spur, bilateral knee scopes, Other - lap umbilical hernia repair Social History Lives with: Family Smoking Status: Never Smoker Frequency of Alcohol Use: Rare Drugs: None Family History Family History: Reviewed & Not Pertinent, Other - mother had dvt Parental Family History Reviewed: Yes Children Family History Reviewed: No Sibling(s) Family History Reviewed.: No Medication/Allergy Home Medications: Pantoprazole Sodium [Protonix] 20 mg PO DAILY 06/25/18 Hydrocodone/Acetaminophen [[place] 5-325 mg Tablet] 1 tab PO Q8HP PRN MDD FILLED 06/14 FOR 10 DAY SUPPLY 06/28/18 Rivaroxaban [Xarelto] 20 mg PO DAILY 06/28/18 Allergies/Adverse Reactions: No Known Allergies Allergy (Verified 06/28/18 01:25) Review of Systems Constitutional: PRESENT: as per HPI Ears: PRESENT: other - no visual/hearing changes Cardiovascular: PRESENT: other - no chest pains/cough Gastrointestinal: PRESENT: abdominal pain, constipation Genitourinary: PRESENT: other - no dysuria Hematologic/Lymphatic: PRESENT: other - no easy bruising Physical Exam Vital Signs: Temp Pulse Resp BP Pulse Ox 98.3 F 78 24 H 127/77 H 95 06/28/18 01:00 06/28/18 01:00 06/28/18 01:00 06/28/18 07:15 06/28/18 07:15 Intake & Output 06/27/18 06/28/18 06/29/18 06:59 06:59 06:59 Intake Total 1000 Balance 1000 Weight 138.3 kg General appearance: PRESENT: severe distress Head exam: PRESENT: atraumatic Eye exam: PRESENT: conjunctiva pink Mouth exam: PRESENT: moist Neck exam: PRESENT: full ROM Respiratory exam: PRESENT: clear to auscultation dee Cardiovascular exam: PRESENT: RRR Pulses: PRESENT: normal radial pulses Vascular exam: PRESENT: normal capillary refill GI/Abdominal exam: PRESENT: soft, tenderness - umbilical and left side of abdomen Rectal exam: PRESENT: deferred Extremities exam: PRESENT: full ROM Musculoskeletal exam: PRESENT: ambulatory Neurological exam: PRESENT: alert, oriented to person, oriented to place, oriented to time, oriented to situation Psychiatric exam: PRESENT: anxious Skin exam: PRESENT: normal color, warm Results Laboratory Results: 06/28/18 01:20 06/28/18 01:20 06/28/18 06/28/18 01:20 01:20 WBC 11.1 H RBC 4.88 Hgb 14.3 Hct 41.4 MCV 85 MCH 29.4 MCHC 34.6 RDW 13.3 Plt Count 187 Seg Neutrophils % 72.0 Lymphocytes % 20.5 Monocytes % 6.4 Eosinophils % 0.3 Basophils % 0.8 Absolute Neutrophils 8.0 Absolute Lymphocytes 2.3 Absolute Monocytes 0.7 Absolute Eosinophils 0.0 Absolute Basophils 0.1 Sodium 141.6 Potassium 4.1 Chloride 108 H Carbon Dioxide 25 Anion Gap 9 BUN 19 Creatinine 1.35 H Est GFR ( Amer) > 60 Est GFR (Non-Af Amer) 56 L Glucose 114 H Calcium 8.8 Total Bilirubin 0.6 AST 25 ALT 22 Alkaline Phosphatase 69 Total Protein 6.5 Albumin 4.0 Lipase 96.6 Impressions: Abdomen/Pelvis CT 06/28/18 01:15 IMPRESSION: Subcutaneous gas, as above presumably postoperative in nature. There is also a tiny amount of extraluminal air in the anterior abdomen, immediately deep to the rectus abdominis musculature. There is some minor surrounding inflammation. Fatty infiltrate of change to the liver. Subsegmental atelectasis in the lung bases. Cholelithiasis. Occasional sigmoid diverticuli. No CT evidence for diverticulitis. TECHNICAL DOCUMENTATION: Quality ID # [id number]: Final reports with documentation of one or more dose reduction techniques (e.g., Automated exposure control, adjustment of the mA and/or kV according to patient size, use of iterative reconstruction technique) copyright 2011 [employer]- All Rights Reserved Assessment & Plan - Diagnosis (3) DVT (deep venous thrombosis) Qualifiers: DVT location: lower extremity Affected thrombotic vein of extremity: femoral Chronicity: acute Laterality: right Qualified Code(s): I82.411 - Acute embolism and thrombosis of right femoral vein - Time Time Spent: 30 to 50 Minutes - Inpatient Certification Medical Necessity: Need For IV Fluids, Need for Pain Control, Need for IV Antibiotics - Plan Summary Plan Summary: Hold Xarelto and place on IV heparin or Lovenox Blood c/s and start iv antibiotics with Zosyn for possible cellulitis abdominal wall Toradol IV and Dilaudid for pain control
[2018-06-28] MEDS ORDERED: PIPERACILLIN/TAZOBACTAM 3.375 GM VIAL IV ONE (08:13)
[2018-06-28] MEDS ORDERED: KETOROLAC TROMETHAMINE INJ/PF 30 MG/1 ML SDV IV PRN (08:14)
[2018-06-28] MEDS: ENOXAPARIN SODIUM INJ 40 MG/0.4 ML DISP.SYRIN SUBCUT SCH (10:26)
[2018-06-28] MEDS: PIPERACILLIN SODIUM/TAZOBACTAM 3.375 GM in NORMAL SALINE 100 ML IV SCH ×3 (10:26→21:00)
[2018-06-28] MEDS: HYDROMORPHONE HCL INJ/PF 2 MG/ML AMPULE IV PRN ×3 (11:59→21:00)
[2018-06-28] MEDS: NORMAL SALINE 1000 ML 1,000 ML IV PRN (20:46)
[2018-06-28 21:39] LABS: APPEARANCE,URINE CLEAR; BILIRUBIN,URINE NEGATIVE (NEGATIVE); COLOR,URINE YELLOW; GLUCOSE, URINE NEGATIVE (NEGATIVE); KETONES,URINE NEGATIVE (NEGATIVE); LEUKOCYTE ESTERASE,URINE NEGATIVE (NEGATIVE); NITRITE,URINE NEGATIVE (NEGATIVE); PROTEIN,URINE NEGATIVE (NEGATIVE); URINE SPECIFIC GRAVITY 1.028; UROBILINOGEN,URINE NEGATIVE mg/dL (<2.0)
[2018-06-29] MEDS: HYDROMORPHONE HCL INJ/PF 2 MG/ML AMPULE IV PRN ×2 (02:21→07:46)
[2018-06-29] MEDS: PIPERACILLIN SODIUM/TAZOBACTAM 3.375 GM in NORMAL SALINE 100 ML IV SCH ×2 (02:22→11:02)
[2018-06-29 04:51] LABS: ABSOLUTE EOSINOPHILS # (AUTO) 0.2 10^3/uL (0.0-0.6); ABSOLUTE LYMPHOCYTES (AUTO) 1.8 10^3/uL (0.5-4.7); ABSOLUTE MONOCYTES (AUTO) 0.6 10^3/uL (0.1-1.4); ABSOLUTE NEUT (AUTO) 5.9 10^3/uL (1.7-8.2); BASOPHILS % (AUTO) 0.6 % (0-2); EOSINOPHILS % (AUTO) 2.2 % (0-6); HEMATOCRIT 39.1 % (37.9-51.0); HEMOGLOBIN 13.6 g/dL (13.5-17.0); LYMPHOCYTES % (AUTO) 21.1 % (13-45); MEAN CORPUSCULAR HEMOGLOBIN 29.3 pg (27.0-33.4); MEAN CORPUSCULAR HGB CONC 34.7 g/dL (32.0-36.0); MEAN CORPUSCULAR VOLUME 85 fl (80-97); MONOCYTES % (AUTO) 7.6 % (3-13); PLATELET COUNT 145 10^3/uL (150-450); RED BLOOD COUNT 4.62 10^6/uL (4.35-5.55); RED CELL DISTRIBUTION WIDTH 13.1 % (11.5-14.0); SEGMENTED NEUTROPHILS % (AUTO) 68.5 % (42-78); TOTAL CELLS COUNTED % (AUTO) 100 %; WHITE BLOOD COUNT 8.6 10^3/uL (4.0-10.5)
[2018-06-29 04:54] LABS: INTERNATIONAL RATION (INR) 1.07; PROTHROMBIN TIME 14.4 SEC (11.4-15.4)
[2018-06-29 04:55] LABS: PARTIAL THROMBOPLASTIN TIME 27.6 SEC (23.5-35.8)
[2018-06-29 05:13] LABS: ALANINE AMINOTRANSFERASE 19 U/L (21-72); ALBUMIN 3.7 g/dL (3.5-5.0); ALKALINE PHOSPHATASE 64 U/L (38-126); ANION GAP 7 (5-19); ASPARTATE AMINO TRANSFERASE 25 U/L (17-59); BILIRUBIN,DIRECT 0.3 mg/dL (0.0-0.4); BILIRUBIN,TOTAL 1.6 mg/dL (0.2-1.3); BLOOD UREA NITROGEN 18 mg/dL (7-20); CALCIUM 8.6 mg/dL (8.4-10.2); CARBON DIOXIDE 29 mmol/L (22-30); CHLORIDE 105 mmol/L (98-107); GLUCOSE 97 mg/dL (75-110); POTASSIUM 4.3 mmol/L (3.6-5.0); SODIUM 140.7 mmol/L (137-145)
[2018-06-29] MEDS: NORMAL SALINE 1000 ML 1,000 ML IV PRN ×2 (05:40→11:05)
--- NOTE | 2018-06-29 11:58 | Physician Advisory Note ---
Physician Advisor ProgressNote .: [facility], I have reviewed the medical record for this patient. Physician Advisor Statement: Pt came in w/O2 sat 89% & RR24. Has since had sats as low as 95% on 2L O2 (gives P/F ratio 282, indicating equivalent to RA O2 sat of 89-90%, pO2 57-[address] noted atelectasis bilat. - This reviewer finds no order for O2 (without order for it, payer will expect nurses are giving it but attg doesn't feel it's needed). - If pt has evidence of hypoxemia in association with evidence of increased work of breathing or resp distress, this is sufficient for the dx of Acute Respiratory Failure. Please consider documenting, if you agree: 1. "Mild Hypoxemia, suspect due to " - Is this different from pt's ba yin? Would pt benefit from O2/incentive spirometer/other tx for this? - If pt has/had evidence of increased work of breathing with this, please document it, & consider whether pt has/had "Acute REspiratory Failure" or not. 2. STatus/medical necessity: Pt came in appropriately as Obs for pain control & further eval, with potential for quick resolution & d/c, but after 1st night of care, pt remains NPO on IVF, has had some mild hypoxemia the nurses have tx'd with O2, & his pain is requiring frequent PRN IV Dilaudid (5x in less than 24 hrs already). CT reported "abundant stool" (?has he evacuated his bowels since CT?). Meanwhile, Cr remains up (in the 1.3's) from prior baseline (which appears to be appx 1.1), total bili has acutely risen from 0.6 to 1.6 since yesterday, & pt has developed a new mild thrombocytopenia. - If attending considers these/other new or ongoing acute clinical issues concerning & requiring continued hospital level eval & monitoring, please document all the issues considered pertinent, & may consider change to Inpatient status. Thanks! CK
[2018-06-29] MEDS ORDERED: KETOROLAC TROMETHAMINE 10 MG TABLET PO PRN (12:08)
[2018-06-29] MEDS ORDERED: KETOROLAC TROMETHAMINE INJ/PF 30 MG/1 ML SDV IV PRN (12:08)
--- NOTE | 2018-06-29 12:17 | PDOC PROGRESS REPORT ---
Subjective Progress Note for:: 06/29/18 Subjective:: Feeling better still complaining of abdominal pain, no bowel movement. Still feels bloated Reason For Visit: INTRACTABLE ABDOMINAL PAINS,POST LAPAROSCOPIC Physical Exam Vital Signs: Temp Pulse Resp BP Pulse Ox 98.2 F 67 20 142/79 H 98 06/29/18 07:17 06/29/18 07:17 06/29/18 07:17 06/29/18 07:17 06/29/18 07:17 Intake & Output 06/28/18 06/29/18 06/30/18 06:59 06:59 06:59 Intake Total 1000 1700 677 Output Total 600 Balance 1000 1100 677 Weight 138.3 kg 121.9 kg General appearance: PRESENT: mild distress GI/Abdominal exam: PRESENT: other - Mild erythema of the abdominal wall but no duc cellulitis. Diffuse tenderness but no peritoneal signs or rigidity. The operative incisions are covered with Steri-Strips. Results Laboratory Results: 06/29/18 04:40 06/29/18 04:40 06/28/18 06/29/18 06/29/18 20:34 04:40 04:40 WBC 8.6 RBC 4.62 Hgb 13.6 Hct 39.1 MCV 85 MCH 29.3 MCHC 34.7 RDW 13.1 Plt Count 145 L Seg Neutrophils % 68.5 Lymphocytes % 21.1 Monocytes % 7.6 Eosinophils % 2.2 Basophils % 0.6 Absolute Neutrophils 5.9 Absolute Lymphocytes 1.8 Absolute Monocytes 0.6 Absolute Eosinophils 0.2 Absolute Basophils 0.0 Sodium 140.7 Potassium 4.3 Chloride 105 Carbon Dioxide 29 Anion Gap 7 BUN 18 Creatinine 1.32 H Est GFR ( Amer) > 60 Est GFR (Non-Af Amer) 58 L Glucose 97 Calcium 8.6 Total Bilirubin 1.6 H AST 25 ALT 19 L Alkaline Phosphatase 64 Total Protein 6.0 L Albumin 3.7 Urine Color YELLOW Urine Appearance CLEAR Urine pH 5.0 Ur Specific [place] 1.028 Urine Protein NEGATIVE Urine Glucose (UA) NEGATIVE Urine Ketones NEGATIVE Urine Blood NEGATIVE Urine Nitrite NEGATIVE Ur Leukocyte Esterase NEGATIVE Urine WBC (Auto) 1 Urine RBC (Auto) 1 Impressions: Abdomen/Pelvis CT 06/28/18 01:15 IMPRESSION: Subcutaneous gas, as above presumably postoperative in nature. There is also a tiny amount of extraluminal air in the anterior abdomen, immediately deep to the rectus abdominis musculature. There is some minor surrounding inflammation. Fatty infiltrate of change to the liver. Subsegmental atelectasis in the lung bases. Cholelithiasis. Occasional sigmoid diverticuli. No CT evidence for diverticulitis. TECHNICAL DOCUMENTATION: Quality ID # 436: Final reports with documentation of one or more dose reduction techniques (e.g., Automated exposure control, adjustment of the mA and/or kV according to patient size, use of iterative reconstruction technique) copyright 2011 [employer]- All Rights Reserved Assessment & Plan - Diagnosis (1) Intractable abdominal pain Is this a current diagnosis for this admission?: Yes Plan: Impression: Postoperative day 3 status post umbilical herniorrhaphy laparoscopic, with postoperative pain, abdominal distention, failure to thrive, constipation, mild abdominal wall erythema. Clinically and laboratory barragan improved. Recommendations: 1. Decrease narcotic; substitute with acetaminophen and Toradol 2. Out of bed to chair. 3. Discussed management with patient and family; also discussed with Dr. Montoya. No indication patient is suffering from significant postoperative issue; will manage back currently and anticipate discharge home later today.
[2018-06-29] MEDS: ENOXAPARIN SODIUM INJ 40 MG/0.4 ML DISP.SYRIN SUBCUT SCH (12:43)
[2018-06-29] MEDS: RIVAROXABAN 10 MG TABLET PO SCH (15:38)
[2018-06-29] MEDS: LANSOPRAZOLE 15 MG TAB.RAP.DR PO SCH (15:39)
[2018-06-29] MEDS ORDERED: ACETAMINOPHEN INJ/PF 1000 MG/100 ML SDV IV SCH (18:00)
[2018-06-29] MEDS: ACETAMINOPHEN 1,000 MG/100 ML RTUPB IV SCH (18:10)
[2018-06-30] MEDS: NORMAL SALINE 1000 ML 1,000 ML IV PRN (00:13)
[2018-06-30] MEDS: ACETAMINOPHEN 1,000 MG/100 ML RTUPB IV SCH ×4 (00:26→17:25)
[2018-06-30] MEDS: LANSOPRAZOLE 15 MG TAB.RAP.DR PO SCH (05:38)
--- NOTE | 2018-06-30 06:09 | Physician Advisory Note ---
Physician Advisor ProgressNote .: Pursuant to the plan for [facility], I have reviewed the medical record for this patient. Physician Advisor Statement: SUMMARY ADVISORY NOTE (includes info from yesterday's note): Please consider documenting, if you agree: 1. "Acute Respiratory Failure, evidenced by hypoxemia, tachypnea, & use of accessory muscles to breathe, suspect due to [atelectasis? or ...?], treated with " [O2? Incentive spirometer? ...] vs "Chronic Resp Failure, evidenced by , due to ", vs. "Acute REsp Failure considered but ruled out" 2. STatus/medical necessity: after 1st night of care, pt continued to have persistent acute firmness & tenderness of abd, without BM, despite changing to non-opioid tx, not felt safe for d/c that day as planned. Please document the ongoing clinical issues that prevented safe d/c 06/29 PM; appropriate to change to Inpatient status. Discussion: Pt w/no prior O2 need at baseline came in w/O2 sat 89% & RR24. Has since had sats as low as 95% on 2L O2 (gives P/F ratio 282, which is consistent w/dx of Acute Respiratory Failure). Nursing note 06/29 at 10:00 states pt using accessory muscles to breathe. CT noted atelectasis bilat. - This reviewer finds no order for O2 (without order for it, payer will expect nurses are giving it but attg doesn't feel it's needed). - If pt has evidence of hypoxemia in association with evidence of increased work of breathing or resp distress, this is sufficient for the dx of Acute Respiratory Failure. Thanks! CK
--- NOTE | 2018-06-30 08:18 | PDOC PROGRESS REPORT ---
Subjective Progress Note for:: 06/30/18 Subjective:: less pains and breathing better Reason For Visit: INTRACTABLE ABDOMINAL PAINS,POST LAPAROSCOPIC Physical Exam Vital Signs: Temp Pulse Resp BP Pulse Ox 98.2 F 56 L 15 138/83 H 98 06/30/18 07:45 06/30/18 07:45 06/30/18 07:45 06/30/18 07:45 06/30/18 07:45 Intake & Output 06/29/18 06/30/18 07/01/18 06:59 06:59 06:59 Intake Total 1700 2815 Output Total 600 1198 Balance 1100 1617 Weight 121.9 kg 126.9 kg Exam: abdomen is soft and much less tender left abdominal wall Results Laboratory Results: 06/29/18 04:40 06/29/18 04:40 Impressions: Abdomen/Pelvis CT 06/28/18 01:15 IMPRESSION: Subcutaneous gas, as above presumably postoperative in nature. There is also a tiny amount of extraluminal air in the anterior abdomen, immediately deep to the rectus abdominis musculature. There is some minor surrounding inflammation. Fatty infiltrate of change to the liver. Subsegmental atelectasis in the lung bases. Cholelithiasis. Occasional sigmoid diverticuli. No CT evidence for diverticulitis. TECHNICAL DOCUMENTATION: Quality ID # [id number]: Final reports with documentation of one or more dose reduction techniques (e.g., Automated exposure control, adjustment of the mA and/or kV according to patient size, use of iterative reconstruction technique) copyright 2011 [employer]- All Rights Reserved Assessment & Plan - Diagnosis (1) Intractable abdominal pain Is this a current diagnosis for this admission?: Yes (3) DVT (deep venous thrombosis) Qualifiers: DVT location: lower extremity Affected thrombotic vein of extremity: femoral Chronicity: acute Laterality: right Qualified Code(s): I82.411 - Acute embolism and thrombosis of right femoral vein (4) Acute respiratory failure Is this a current diagnosis for this admission?: Yes - Time Time Spent with patient: 15-24 minutes - Inpatient Certification Medical Necessity: Need for Nebulizer Therapy and Monitoring of Response, Need for Pain Control, Risk of Complication if Not Cared For in Hospital - Plan Summary Plan Summary: Increase diet Xarelto resumed for DVT right leg Increase activity Possible discharge today if tolerates regular food and pains are tolerable.
[2018-06-30] MEDS: RIVAROXABAN 10 MG TABLET PO SCH (09:13)
[2018-06-30 15:51] VITALS: BP 127/71
--- NOTE | 2018-07-01 11:42 | DISCHARGE SUMMARY E ---
Discharge Summary NAME: LILLIANA MURPHY : 1970 AGE: 47Y ADMITTED: 06/28/2018 DISCHARGED: 06/30/2018 FINAL DIAGNOSES: 1. Intractable abdominal pain post laparoscopic umbilical hernia repair with mesh done 06/26/[address] Montoya. 2. Acute respiratory failure with sleep apnea. HOSPITAL COURSE: This is a 47-year-old male who underwent laparoscopic umbilical hernia repair by Dr. Montoya on 06/26/2018. The patient complained of increasing pain primarily along the trocar sites on the left side of the abdomen to the point where he could not walk when seen in the emergency department on 06/28/2018. He also had some difficulty breathing and needed CPAP treatment. He had a CAT scan of the abdomen, which showed air in the subcutaneous area compatible with postop changes, but no acute intra-abdominal abnormality. He was tender in the left upper quadrant. He was then admitted and placed on IV morphine and Toradol. He was continued on CPAP treatments. He had a dose of *------*, which was stopped after 24 hours with his white count coming down to normal from 11.1 on admission. On the day of admission, the patient able to ambulate and tolerate soft diet well. He feels a lot better and will continue his CPAP treatments at home and arrangements have been made for followup with Dr. Montoya in about a week for followup. The patient was then discharged improved with the above final diagnosis. A prescription was given to him for Toradol 10 mg p.o. q. 8 hours x12. This is to take p.r.n. q. 8 hours for pain. The patient was then discharged improved on 06/30/2018. DICTATING PHYSICIAN: RISA ROJO M.D. [id number] PHY#: [id number] ID: [id number] JOB#: [id number] ACCT: [id number] cc:Radha LAUGHLIN M.D. IVAN FRIANT, PA >
== END 2018-06-30 19:10 | disposition home or self-care (01) | DRG 947 ==
LOC: ER 01:00 → EH 06:29 → 4N 22:14 → OBSVTOIN 06-30 12:42
PROVIDERS: ATTEND Surgery
DX: G89.18 Other acute postprocedural pain (principal); J96.01 Acute respiratory failure with hypoxia; K59.00 Constipation, unspecified; K80.20 Calculus of gallbladder without cholecystitis without obstruction; G47.30 Sleep apnea, unspecified; R62.7 Adult failure to thrive; Z79.01 Long term (current) use of anticoagulants; Z86.718 Personal history of other venous thrombosis and embolism; Z98.890 Other specified postprocedural states
CPT/HCPCS: 36415; 74177; 80053; 81001; 83690; 85025; 85610; 85730; 86850; 86900; 86901; 96361; 96365; 96366; 96372; 96375; 96376; 99285; J0131; J1170; J1650; J1885; J2405; J2543; J3490; J7030

== ENCOUNTER 2018-09-03 00:41 | Emergency (ER) | payer OTHER ==
[2018-09-03 02:51] LABS: ALANINE AMINOTRANSFERASE 27 U/L (21-72); ALBUMIN 4.1 g/dL (3.5-5.0); ALKALINE PHOSPHATASE 71 U/L (38-126); ANION GAP 9 (5-19); ASPARTATE AMINO TRANSFERASE 33 U/L (17-59); BILIRUBIN,DIRECT 0.2 mg/dL (0.0-0.4); BILIRUBIN,TOTAL 0.7 mg/dL (0.2-1.3); BLOOD UREA NITROGEN 16 mg/dL (7-20); CALCIUM 9.6 mg/dL (8.4-10.2); CARBON DIOXIDE 21 mmol/L (22-30); CHLORIDE 109 mmol/L (98-107); GLUCOSE 115 mg/dL (75-110); LIPASE 168.5 U/L (23-300); SODIUM 139.2 mmol/L (137-145)
[2018-09-03 02:59] LABS: ABSOLUTE EOSINOPHILS # (AUTO) 0.1 10^3/uL (0.0-0.6); ABSOLUTE LYMPHOCYTES (AUTO) 2.2 10^3/uL (0.5-4.7); ABSOLUTE MONOCYTES (AUTO) 0.6 10^3/uL (0.1-1.4); ABSOLUTE NEUT (AUTO) 3.8 10^3/uL (1.7-8.2); BASOPHILS % (AUTO) 0.5 % (0-2); HEMATOCRIT 42.8 % (37.9-51.0); HEMOGLOBIN 14.7 g/dL (13.5-17.0); LYMPHOCYTES % (AUTO) 33.1 % (13-45); MEAN CORPUSCULAR HEMOGLOBIN 29.3 pg (27.0-33.4); MEAN CORPUSCULAR HGB CONC 34.4 g/dL (32.0-36.0); MEAN CORPUSCULAR VOLUME 85 fl (80-97); MONOCYTES % (AUTO) 8.4 % (3-13); PLATELET COUNT 190 10^3/uL (150-450); RED BLOOD COUNT 5.03 10^6/uL (4.35-5.55); RED CELL DISTRIBUTION WIDTH 13.7 % (11.5-14.0); TOTAL CELLS COUNTED % (AUTO) 100 %; WHITE BLOOD COUNT 6.8 10^3/uL (4.0-10.5)
[2018-09-03 03:05] LABS: APPEARANCE,URINE CLEAR; BILIRUBIN,URINE NEGATIVE (NEGATIVE); COLOR,URINE YELLOW; GLUCOSE, URINE NEGATIVE (NEGATIVE); KETONES,URINE NEGATIVE (NEGATIVE); LEUKOCYTE ESTERASE,URINE NEGATIVE (NEGATIVE); NITRITE,URINE NEGATIVE (NEGATIVE); PROTEIN,URINE NEGATIVE (NEGATIVE); URINE SPECIFIC GRAVITY 1.027; UROBILINOGEN,URINE NEGATIVE mg/dL (<2.0)
[2018-09-03] MEDS ORDERED: RINGERS SOLUTION,LACTATED 1,000 ML IV ONE (03:28)
[2018-09-03] MEDS ORDERED: FENTANYL CITRATE INJ/PF 100 MCG/2 ML AMPUL IV ONE (03:40)
--- NOTE | 2018-09-03 03:46 | RADIOLOGY REPORT (SQ) ---
EXAM DESCRIPTION: CT ABDOMEN PELVIS WITH IV CONTRAST COMPLETED DATE/TME: 09/03/2018 02:37 CLINICAL HISTORY: 47 years, Male, pain COMPARISON: 06/28/2018 CT TECHNIQUE: 859 Images stored on PACS. All CT scanners at this facility use dose modulation, iterative reconstruction, and/or weight based dosing when appropriate to reduce radiation dose to as low as reasonably achievable (ALARA). [facility]: Dose Right [facility]: CareDose [facility]: Dose Right [facility]: Teradose 4D [facility]: Smart Book&Table LIMITATIONS: None. FINDINGS: Limited evaluation of the lung bases is unremarkable. Osseous structures are grossly intact. Fatty infiltrative change to the liver. The spleen, adrenal glands, pancreas, kidneys are unremarkable. Cholelithiasis. Large amount stool in the colon. No gross evidence for bowel obstruction. Appendix not well seen. No pericecal inflammation. Occasional sigmoid diverticuli without CT evidence for diverticulitis. Fat-containing inguinal hernias bilaterally. IMPRESSION: Fatty infiltrative change to the liver. Cholelithiasis. Occasional sigmoid diverticuli. No CT evidence for diverticulitis TECHNICAL DOCUMENTATION: Quality ID # [id number]: Final reports with documentation of one or more dose reduction techniques (e.g., Automated exposure control, adjustment of the mA and/or kV according to patient size, use of iterative reconstruction technique) copyright 2011 [employer]- All Rights Reserved
--- NOTE | 2018-09-03 04:28 | ER Document Report ---
ED General - General Chief Complaint: Upper Abdominal Pain Stated Complaint: ABDOMINAL PAIN Time Seen by Provider: 09/03/18 02:35 Primary Care Provider: MELANIE MATTHEW MD [Primary Care Provider] - Follow up as needed Notes: Patient is a 39-year-old male presents to the emergency department for intermittent abdominal pain starting on Friday. Patient states he did have multiple episodes of diarrhea nonbloody over the weekend but that diarrhea has since stopped. Patient is denying any nausea, vomiting, fever. Patient states his pain is mostly periumbilical and radiates to his right lower quadrant. Patient states June 2018 he did have mesh placed for an umbilical hernia but otherwise has had no abdominal surgeries. Past medical history DVT, acid indigestion Medications: Xarelto, Protonix Allergies: None TRAVEL OUTSIDE OF THE [place] IN LAST 30 DAYS: No - Related Data Allergies/Adverse Reactions: No Known Allergies Allergy (Verified 09/03/18 03:12) Past Medical History - General Information source: Patient - Social History Smoking Status: Never Smoker Frequency of alcohol use: Occasional Drug Abuse: None Family History: Reviewed & Not Pertinent, Other - mother had dvt Patient has suicidal ideation: No Patient has homicidal ideation: No - Past Medical History Cardiac Medical History: Reports: Hx DVT - Right lower extremity 06/2015 anticoagulation until 09/2015 Denies: Hx Congestive Heart Failure, Hx Coronary Artery Disease, Hx Heart Attack, Hx Hypertension Pulmonary Medical History: Reports: Hx Bronchitis - YEARLY , Hx Pneumonia, 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 Denies: Hx Cirrhosis, Hx Ulcer Musculoskeletal Medical History: Denies Hx Arthritis, Denies Hx Multiple Sclerosis Psychiatric Medical History: Denies: Hx Bipolar Disorder, Hx Depression, Hx Schizophrenia Past Surgical History: Reports: Hx Abdominal Surgery - umb hernia repair, Hx Bowel Diversion - Umbilical hernia repair, Hx Orthopedic Surgery - left shoulder rotator cuff, right elbow bone spur, bilateral knee scopes, Other - lap umbilical hernia repair - Immunizations Hx Diphtheria, Pertussis, Tetanus Vaccination: No Review of Systems - Review of Systems Constitutional: See HPI EENT: No symptoms reported Cardiovascular: No symptoms reported Respiratory: No symptoms reported Gastrointestinal: See HPI Genitourinary: No symptoms reported Male Genitourinary: No symptoms reported Musculoskeletal: No symptoms reported Skin: No symptoms reported Hematologic/Lymphatic: No symptoms reported Neurological/Psychological: No symptoms reported Physical Exam - Vital signs Vitals: Temp Pulse Resp BP Pulse Ox 97.5 F 60 16 142/86 H 97 09/03/18 00:52 09/03/18 00:52 09/03/18 00:52 09/03/18 00:52 09/03/18 00:52 - Notes Notes: GENERAL: Alert, interacts well. No acute distress. HEAD: Normocephalic, atraumatic. EYES: Pupils equal, round, and reactive to light. Extraocular movements intact. ENT: Oral mucosa moist, tongue midline. NECK: Full range of motion. Supple. Trachea midline. LUNGS: Clear to auscultation bilaterally, no wheezes, rales, or rhonchi. No respiratory distress. HEART: Regular rate and rhythm. No murmur ABDOMEN: Obese soft, Non-distended. Bowel sounds present in all 4 quadrants. Generalized tenderness noted periumbilical and right lower quadrant. EXTREMITIES: Moves all 4 extremities spontaneously. No edema, normal radial and dorsalis pedis pulses bilaterally. No cyanosis. BACK: no cervical, thoracic, lumbar midline tenderness. No saddle anesthesia, normal distal neurovascular exam. NEUROLOGICAL: Alert and oriented x3. Normal speech. cranial nerves II through XII grossly intact generalized tenderness noted periumbilical PSYCH: Normal affect, normal mood. SKIN: Warm, dry, normal turgor. No rashes or lesions noted. Course - Re-evaluation Re-evalutation: 09/03/18 04:29 Patient's CBC is within normal limits, patient's creatinine was noted to be 1.27, specific gravity urine was 1.027. Patient was treated with fluid resuscitation in the emergency room. Patient was also given pain management. Patient CT abdomen pelvis with IV contrast shows fatty infiltrate changes to the liver, cholelithiasis, sigmoid diverticuli with no evidence of diverticulitis. They were unable to see the appendix but do note no pericecal inflammation noted. This read along with no leukocytosis, patient's pain has much improved I feel confident discharging the patient. CT does note large amount of stool in the colon. Discussed with patient use of at home MiraLAX and Metamucil. Discussed close return precautions and following up with primary care provider. Patient voices understanding is stable for discharge. - Vital Signs Vital signs: Temp Pulse Resp BP Pulse Ox 97.5 F 60 16 142/86 H 97 09/03/18 00:52 09/03/18 00:52 09/03/18 00:52 09/03/18 00:52 09/03/18 00:52 - Laboratory Result Diagrams: 09/03/18 02:07 09/03/18 02:07 Laboratory results interpreted by me: 09/03/18 09/03/18 02:07 02:41 Chloride 109 H Carbon Dioxide 21 L Creatinine 1.27 H Glucose 115 H Urine Blood SMALL H Discharge - Discharge Clinical Impression: Abdominal pain Qualifiers: Abdominal location: right lower quadrant Qualified Code(s): R10.31 - Right lower quadrant pain Condition: Stable Disposition: HOME, SELF-CARE Instructions: Abdominal Pain ([facility]), Observation for Appendicitis ([facility]) Additional Instructions: As we discussed you have been seen and treated in the emergency department for your generalized abdominal pain. Your CT imaging shows no signs of abnormalities although we were unable to visualize her appendix. As we discussed there is no free fluid around her appendix and your white blood cell count is within normal limits. Due to the fact that you no longer have any pain I feel comfortable discharging you home. His CT also showed a large amount of stool in your colon. Please make sure you use [id number] Metamucil and MiraLAX as a bowel regimen. Please also make sure you follow-up with your primary care provider in the next 24 hours. Please return to the emergency room should you have a recurrence of your abdominal pain at any point. Forms: Return to Work Referrals: MELANIE MATTHEW MD [Primary Care Provider] - Follow up as needed
[2018-09-03 04:49] VITALS: BP 145/78
== END 2018-09-03 04:56 | disposition home or self-care (01) ==
LOC: ER 00:41
DX: R10.31 Right lower quadrant pain (principal); R10.33 Periumbilical pain; R10.10 Upper abdominal pain, unspecified; R10.9 Unspecified abdominal pain; R19.7 Diarrhea, unspecified
CPT/HCPCS: 99284; 96361; 96374; 36415; 83690; 85025; 80053; 81001; 74177; J3010; J7120

== ENCOUNTER → 2018-12-15 | Outpatient (CLI) | payer OTHER ==
--- NOTE | 2018-12-15 10:54 | RADIOLOGY REPORT (SQ) ---
EXAM DESCRIPTION: ELBOW LEFT >2 VIEWS COMPLETED DATE/TIME: 12/15/2018 10:16 am REASON FOR STUDY: OLECRANON BURSITIS, LEFT ELBOW M70.22 OLECRANON BURSITIS, LEFT ELBOW COMPARISON: None. NUMBER OF VIEWS: Four views. TECHNIQUE: AP, lateral, and both oblique radiographic images acquired of the left elbow. LIMITATIONS: None. FINDINGS: MINERALIZATION: Normal. BONES: No acute fracture or dislocation. Large olecranon enthesophyte. JOINT: No effusion. SOFT TISSUES: Mild soft tissue swelling posterior to the olecranon. No radiopaque foreign body. OTHER: No other significant finding. IMPRESSION: 1. No evidence of acute bony abnormality. 2. Large olecranon enthesophyte with associated soft tissue swelling, suggestive of olecranon bursit is. TECHNICAL DOCUMENTATION: JOB ID: [id number] [employer]- All Rights Reserved Reading location - IP/workstation name: [email or web address]
== END ==
LOC: OD 10:06
PROVIDERS: ATTEND Physician Assistant
DX: M70.22 Olecranon bursitis, left elbow (principal)

== ENCOUNTER → 2019-04-08 | Outpatient (CLI) | payer OTHER ==
--- NOTE | 2019-04-08 19:44 | RADIOLOGY REPORT (SQ) ---
EXAM DESCRIPTION: CHEST PA/LATERAL COMPLETED DATE/TIME: 04/08/2019 5:15 pm REASON FOR STUDY: COUGH COMPARISON: 06/23/2018 EXAM PARAMETERS: NUMBER OF VIEWS: two views TECHNIQUE: Digital Frontal and Lateral radiographic views of the chest acquired. RADIATION DOSE: NA LIMITATIONS: none FINDINGS: LUNGS AND PLEURA: No opacities, masses or pneumothorax. No pleural effusion. MEDIASTINUM AND HILAR STRUCTURES: No masses or contour abnormalities. HEART AND VASCULAR STRUCTURES: Heart normal size. No evidence for failure. BONES: No acute findings. HARDWARE: None in the chest. OTHER: No other significant finding. IMPRESSION: NO SIGNIFICANT RADIOGRAPHIC FINDING IN THE CHEST. TECHNICAL DOCUMENTATION: JOB ID: [id number] [employer]- All Rights Reserved Reading location - IP/workstation name: [email or web address]
== END ==
LOC: OD 16:17
PROVIDERS: ATTEND Family Medicine
DX: R05 Cough (principal)
CPT/HCPCS: 71046

== ENCOUNTER 2020-03-24 06:52 | Day surgery (SDC) | payer OTHER ==
[2020-03-24] MEDS ORDERED: PROPOFOL INJ 200 MG/20 ML VIAL IV ONE (07:37)
--- NOTE | 2020-03-24 09:08 | Operative Report ---
Operative Report DATE OF SURGERY: 03/24/20 Operative Report: The risk, benefits and alternatives of the procedure including the risks of bleeding, perforation requiring surgery have been explained to the patient in detail and informed consent has been obtained. Patient is placed in left, lateral decubital position. Timeout was called. Propofol medication is administered. Rectal examination is done which did not reveal any masses, tears or fissures. An Olympus videoscope was introduced into the patient's rectum. Scope was then carefully advanced all the way to the cecum. Cecum was identified by the usual anatomical landmarks including the ileocecal valve as well as the appendiceal office. Photodocumentation is obtained. Scope was then sequentially pulled back via the various segments of the colon including the ascending colon, hepatic flexure, transverse colon, splenic flexure, descending colon finding to the rectosigmoid portions of the colon. Retroflexion maneuver is performed. PREOPERATIVE DIAGNOSIS: Colorectal cancer screening POSTOPERATIVE DIAGNOSIS: Descending colon polyps x2 removed via snare polypectomy. Sigmoid colon polyp removed via snare polypectomy. Occasional diverticula. Internal hemorrhoids OPERATION: Colonoscopy snare polypectomy SURGEON: TYRELL HENDERSON ANESTHESIA: LMAC TISSUE REMOVED OR ALTERED: As noted above. COMPLICATIONS: None. ESTIMATED BLOOD LOSS: None. INTRAOPERATIVE FINDINGS: As noted above. PROCEDURE: Patient tolerated the procedure well. No immediate postprocedure complications are noted. Patient is discharged in good condition. Discharge date 03/24/2020. Discharge diet: Regular. Discharge activity: Regular. 2 to 3-week follow-up to discuss findings. 3 to 5-year surveillance colonoscopy. Patient is instructed to call the office or proceed to the emergency room should there be any further problems or questions.
[2020-03-24 09:27] VITALS: BP 139/85
== END 2020-03-24 09:50 | disposition home or self-care (01) ==
LOC: END 06:52
PROVIDERS: ATTEND Internal Medicine Gastroenterology
DX: Z12.11 Encounter for screening for malignant neoplasm of colon (principal); D12.4 Benign neoplasm of descending colon; K63.5 Polyp of colon; K64.8 Other hemorrhoids; K57.30 Diverticulosis of large intestine without perforation or abscess without bleeding; K21.9 Gastro-esophageal reflux disease without esophagitis; G47.33 Obstructive sleep apnea (adult) (pediatric); Z99.89 Dependence on other enabling machines and devices; Z86.718 Personal history of other venous thrombosis and embolism; Z79.01 Long term (current) use of anticoagulants; Z79.899 Other long term (current) drug therapy; Z20.828 Contact with and (suspected) exposure to other viral communicable diseases
CPT/HCPCS: 45385; 87635; 88305 ×2; J2704; C9803; 812

== ENCOUNTER → 2020-04-04 | Outpatient (CLI) | payer OTHER ==
--- NOTE | 2020-04-04 09:13 | ST Modified Barium Swallow ---
Recommendation - Recommendations Recommendations: No oral or pharyngeal deficits seen with swallowing. Recommend patient follow reflux precautions. Medical Diagnoses - Medical Diagnoses Other Medical Diagnoses/Co-Morbidities: per patient report: pulmonary nodules, GERD, prior vocal fold surgeries 2008, 2009. - ICD-10 Tx Diagnosis Coding (1) Dysphagia, unspecified ICD-10 Code(s): R13.10 - DYSPHAGIA, UNSPECIFIED (2) Cough ICD-10 Code(s): R05 - COUGH ST Modified Barium Swallow - General Date: 04/04/20 Referring Physician: Dr. 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 Jer reports having worsening of swallowing problems approximately 6 months ago. He reports "sometimes I'll choke on food". He reports not coughing during meals, but will freqeuntly cough after meals and will "bring stuff up". Medications: per patient and physician note: protonix, xarelto, lipitor, albuterol as needed Allergies: none reported - Functional Status Prior Functional Status: INDEPENDENT: feeding - independent Current Functional Limitations: feeding - globus - Subjective Patient/caregiver goal(s): r/o aspiration Cognitive-Linguistic Function: WNL Speech Intelligibility: WNL Current Nutritional Means: PO Current PO diet: Regular Current symptoms: Coughing, c/o Globus sensation Pain: Patient reports, 0/5 - Objective Assessment: Upright, Left Lateral - Food Trials Used Food trials used: Thin liquids, Pureed, Regular The patient: Was Able to Self Feed - Oral-Motor Skills Dentition: Full Velo-pharyngeal function: Unremarkable Laryngeal Function: hoarse - history of vocal fold scarring - Assessment Oral prep: Normal Labial closure: Adequate Leakage: None Mastication: Adequate Lingual Movement: Normal Oral stage: Normal for this Procedure - Pharyngeal Stage Initiation of Pharyngeal Stage Reflex: Normal Decreased laryngeal elevation: No Reduced Velopharyngeal Closure: no Reduced pressure generation: No reduced tongue-based retraction: No Pre-swallow pooling in valleculae: None Pre-Swallow pooling in pyriforms: None Reduced Thyro-Hyoid approximation: No Reduced epiglottic excursion: No Reduced pharyngeal peristalsis/contraction: No Post-swallow residulas vallecular: Mild Post-Swallow residuals in pyriforms: None - Esophageal Stage Esophageal Stage: patient scheduled to have barium swallow following modified barium study this day. Some upper esophageal retention noted on MBSS. - Fall Risk Assessment Medications/Conditions that increase fall risks include: Antidepressants, sedatives, anti-arrhythmic, diuretic, benzodiazipenes, neuroleptics. BP regulation problems, cardiac problems, balance or gait deficits, neurological problems. Is patient considered at risk for falls: no Fall Risk Actions Taken: No action needed - Treatment / Educational Needs: Treatment/Education Needs: Treatment consisted of patient education on the role of the Speech Pathologist. Patient's plan of care and golas were communicated as well as scheduling and attendance policies. Recommendations for initial home program were shared. Patient demonstrated understanding and verbalized agreement. - Impression/Summary Laryngeal Penetration: No Tracheal Aspiration: no Patient presents with: Normal swallow at eval Risk of Aspiration: Minimal Evaluation and Findings: Oral and pharyngeal musculature WNL to manage regular solids and liquids. - Recommendations Solid diet recommendations: Regular Liquid Diet Modification: Thin Dysphagia therapy with COMMITTEE MEMBER: no Reflux Precautions: Taught to Patient Recommended techniques: Fully Upright During Meal Information, Precautions and Recommendations: Patient (Verbal) - Time Total Time: 30 - Plan of Care Strategies to optimize patient understanding include:: ongoing assessment of educational needs, implementation of educational strategies, and re-education. - - -: Thank you for the opportunity to work with this patient and his/her family. Should you have any questions about this patient's plan or progress, I can be reached at [phone].
--- NOTE | 2020-04-04 10:47 | RADIOLOGY REPORT (SQ) ---
EXAM DESCRIPTION: COOKIE SWALLOW IMAGES COMPLETED DATE/TIME: 04/04/2020 9:32 am REASON FOR STUDY: DYSPHAGIA, COUGH R13.10 DYSPHAGIA, UNSPECIFIED COMPARISON: None. TECHNIQUE: Under fluoroscopic guidance, patient ingested effervescent granules followed by thick and thin barium. Fluoroscopic spot images and routine radiographic images acquired and stored on PACS. 12 MM BARIUM TABLET GIVEN: Barium tablet passed through the esophagus and into the stomach without de lay. RADIATION DOSE: Fluoro time 4.4 minutes 12 images saved to PACS. LIMITATIONS: None. FLUOROSCOPY TIME: . 4.4 minutes FINDINGS: The patient was brought into the fluoro room and placed upright on a modified barium swall ow chair. The patient was then given multiple consistencies mixed with barium to swallow under live fluoroscopic video guidance. According to the Speech Pathologist there was no penetration or aspirat ion. Please refer to the speech pathology report for further details. NEUROMUSCULAR COORDINATION OF SWALLOW: Normal. No aspiration. ESOPHAGEAL MOTILITY: Normal peristalsis. No esophageal spasm. ESOPHAGEAL MUCOSA: Normal mucosa without masses or ulceration. GASTRO-ESOPHAGEAL JUNCTION: A tiny hiatal hernia is present. Minimal gastroesophageal reflux was see n. NON-GI TRACT STRUCTURES: No significant finding. OTHER: No other significant finding. IMPRESSION: NO LARYNGEAL PENETRATION OR TRACHEAL ASPIRATION SEEN. TINY HIATAL HERNIA IS PRESENT WITH MILD GASTROESOPHAGEAL REFLUX. OTHERWISE UNREMARKABLE STUDY. RECOMMENDATION: None COMMENT: None Quality ID [id number]: Final reports for procedures using fluoroscopy that document radiation exposure maria luz estrella, or exposure time and number of fluorographic images (if radiation exposure indices are not avail able) TECHNICAL DOCUMENTATION: JOB ID: [id number] 2010 [employer]- All Rights Reserved Reading location - IP/workstation name: [email or web address] [id number]
== END ==
LOC: RAD 08:30
PROVIDERS: ATTEND Internal Medicine Pulmonary Disease
DX: R13.10 Dysphagia, unspecified (principal); R91.8 Other nonspecific abnormal finding of lung field; R05 Cough
CPT/HCPCS: 74230

== ENCOUNTER → 2020-05-05 | Outpatient (CLI) | payer OTHER ==
--- NOTE | 2020-05-05 10:53 | RADIOLOGY REPORT (SQ) ---
EXAM DESCRIPTION: BARIUM SWALLOW ESOPHAGUS IMAGES COMPLETED DATE/TIME: 05/05/2020 9:47 am REASON FOR STUDY: (R13.10)DYSPHAGIA, UNSPECIFIED R13.10 DYSPHAGIA, UNSPECIFIED COMPARISON: Cookie swallow, barium swallow on 04/04/2020. TECHNIQUE: Under fluoroscopic guidance, patient ingested effervescent granules followed by thick and thin barium. Fluoroscopic spot images and routine radiographic images acquired and stored on PACS. 12 MM BARIUM TABLET GIVEN: Barium tablet passed through the esophagus and into the stomach without de lay. LIMITATIONS: None. FLUOROSCOPY TIME: 1.8 minutes. 6 images saved to PACS. FINDINGS: NEUROMUSCULAR COORDINATION OF SWALLOW: Normal. No aspiration. ESOPHAGEAL MOTILITY: Normal peristalsis. No esophageal spasm. ESOPHAGEAL MUCOSA: Normal mucosa without masses or ulceration. GASTRO-ESOPHAGEAL JUNCTION: Tiny hiatal hernia is present. Marked gastroesophageal reflux to the lev el of the clavicles was identified. NON-GI TRACT STRUCTURES: No significant finding. OTHER: Small duodenal diverticulum. . IMPRESSION: TINY HIATAL HERNIA. MARKED GASTROESOPHAGEAL REFLUX. OTHERWISE UNREMARKABLE STUDY. RECOMMENDATION: None. COMMENT: None. Quality ID 145: Final reports for procedures using fluoroscopy that document radiation exposure maria luz estrella, or exposure time and number of fluorographic images (if radiation exposure indices are not avail able) TECHNICAL DOCUMENTATION: JOB ID: [id number] 2010 [employer]- All Rights Reserved Reading location - IP/workstation name: [email or web address]
== END ==
LOC: RAD 09:02
PROVIDERS: ATTEND Internal Medicine Pulmonary Disease
DX: K21.9 Gastro-esophageal reflux disease without esophagitis (principal); K44.9 Diaphragmatic hernia without obstruction or gangrene; R13.10 Dysphagia, unspecified; R05 Cough
CPT/HCPCS: 74220